=== PATIENT | female | born 1965 | race Caucasian/White ===

== ENCOUNTER → 2022-08-01 12:56 | Outpatient (CLI) | payer OTHER, SELFPAY ==
[2022-08-01 13:40] LABS: COVID19 -Nasal RAPID Negative (Negative)
== END ==
PROVIDERS: PCP Physician Assistant; Referring Provider Orthopaedic Surgery Orthopaedic Surgery of the Spine; Visit Provider Orthopaedic Surgery Orthopaedic Surgery of the Spine
DX: Z20.822 Contact with and (suspected) exposure to COVID-19 (principal)
CPT/HCPCS: 87635; C9803

== ENCOUNTER 2022-08-02 07:13 | Inpatient (IN) | payer OTHER, SELFPAY ==
[2022-08-01 08:41] VITALS: BMI 29.3
[2022-08-02] VITALS (18 sets, daily range): BP systolic 94–147; BP diastolic 57–98; PULSE 62–108; RESP 10–30; TEMP 36.1–36.9; O2SAT 91–99; BMI 29.3
[2022-08-02] MEDS: LACTATED RINGERS 1,000 ML 42 ML IV ×2 (08:20→10:30)
[2022-08-02] MEDS: SCOPOLAMINE 1 PATCH TOP (08:37)
[2022-08-02] MEDS: APREPITANT 40 MG CAPSULE PO (08:38)
--- NOTE | 2022-08-02 08:38 | PM.PREOP ---
Pre-operative Note COVID-19 COVID-19 status: Negative Result date/Date tested (Pos, Neg/Pending): 08/01/22 Criteria for continued procedure: Expected advancement of disease process, Possibility delay results in more complex future surgery or treatment, Increased loss of function, Continuing or worsening of significant or severe pain, Deterioration of the patient's condition or overall health and Delay expected to result in less-positive ultimate med/surg outcome Interval Note History & Physical reviewed/Exam performed by Physician: Yes Changes to H&P: No
[2022-08-02] MEDS: CEFAZOLIN 2 GM/100 ML PREMIX 100 ML IV ×2 (09:15→16:29)
[2022-08-02] MEDS: ACETAMINOPHEN IV 1,000 MG/100 ML VIAL 400 MG IV (09:20)
--- NOTE | 2022-08-02 09:30 | SUR.OPER ---
Prone on spine table, head in foam head support, padded chest and pelvic supports, gel pad at knees, lower legs supported by pillows; nipples, genitalia and toes free of pressure, arms secured on foam padded arm boards at <90 degrees abduction. Tape over blanket at thigh secured to table. Gel pad placed between bilateral heels.
[2022-08-02] MEDS: BUPIVACAINE LIPOSOME 266 MG/20 ML VIAL INJ (09:38)
[2022-08-02] MEDS: BUPIVACAINE 0.25% (PF) 60 ML, EPINEPHrine 0.3 MG INJ (09:39)
--- NOTE | 2022-08-02 12:40 | P.OP_ITS ---
Operative Date/Time/Diagnoses Date of procedure: 08/02/22 Time of procedure: 08:40 Pre-op diagnosis: 1. L2-3, L3-4 post laminectomy syndrome 2. L2-3, L3-4 spondylolisthesis 3. L2-3, L3-4 spinal stenosis Post-op diagnosis: same Procedure & Clinicians Procedure: 1. L4-5, L5-S1 Postero-lateral and posterior interbody fusion 2. L4-5, L5-S1 interbody cage placement. 3. L4-5, L5-S1 decompressive laminectomy with bilateral facetecomies 4. L4-5, L5-S1 Posterior segmental instrumentation 5. [place] of bone marrow from iliac crest 6. Utilization of microsurgical technique and operating microscope 7. Utilization of robotic assisted navigation Same procedure as scheduled: Yes Indications: Patient has been having chronic back pain and worsening lumbar radiculopathy and symptoms of neurogenic claudication. Patient had previous laminectomy with no significant improvement in her symptoms. Patient failed multiple conservative management with worsening pain weakness and numbness in her lower extremity. Patient has been having difficulty performing activity of daily living. After discussing risks benefits of treatment options, patient elected proceed with surgery. Surgeon: Amarilis Pike Health Policy Nurse: Enid Mercedes Click Yes if Unassisted: No Anesthesia Type: General Operative Notes Closure Type: primary Specimen(s): none sent Prosthetic devices, grafts, tissues, transplants, or devices: Globus CREO MIS screws, Rise cages Applied: catheter Estimated Blood Loss (mL): 150 Blood products transfused: none Procedure in detail: Patient was seen in the preoperative area. Risks and benefits of the surgery was discussed with the patient. Informed consent was obtained from the patient and placed in the chart. Surgical site was marked. Patient was taken to the operative room. General anesthesia was administered. Prophylactic antibiotic was given to the patient less than 30 min before the incision was made. Patient was placed into a prone position on the [place] table. Patient's back was then prepped and draped in the sterile fashion. Time-out was performed at this time. After patient was prepped and draped, patient's PSIS was palpated and marked bilaterally. Small 1 cm incision was made over the PSIS for placement of the reference probes. Two trocar was placed into the PSIS 1 on each side. The reference probe was attached to the trocar of the reference apparatus. At this time the C-arm imaging was used to confirm AP and lateral of L2, L3-L4 vertebrae and merged the C-arm imaging using the [employer] robotic navigation system with the CT of the lumbar spine. After successful merging was completed and confirmed, skin marker was used to jose alfredo out the skin incision using the ZipList robotic arm. Bilateral incision was made at this time. Pre templated trajectory was used and guided using the [employer] robotic navigation system for bilateral L2 L3, L4 pedicle screw placement. This was done by using the robotic arm to guide the high-speed bur to make a cortical entry point. Next a drill was placed also using the robotic arm and guided using the navigation system drilling partially through bilateral L2, L3, L4 pedicles. Next L2, L3, L4 pedicle screws it was pre templated and measured was placed onto the power owner operator tanker truck driver and inserted into the pedicles bilaterally. After all 6 screws were placed C-arm imaging was taken of both AP and lateral to confirm the placement. Excellent placement of the screws were confirmed and a matched precisely with the pre planned screw placement using the navigation system. MARs retractor was inserted using [employer] guidence. Globus MARS retractors was placed inside the incision and docked onto the L2, L3 lamina. Using microsurgical technique and operating microscope, a L3, L4 laminectomy and L2-3, L3-4 facetectomy was performed using a Kerrison rongeur. Patient was found have severe lateral recess and neural foramen stenosis which was fully decompressed after the laminectomy facetectomy. More than 75% of the facets we re removed during the process of decompression rendering L2-3, L3-4 level grossly unstable and required a fusion procedure at the same time. The disc space at L2-3, L3-4 was identified, and a total diskectomy was performed at L2- 3, L3-4 level. The endplates were decorticated using a rasp and shaver. The total diskectomy and decortication was performed at L2-3, L3-4 level in order to to accomplish a L2-3, L3-4 fusion. The local bone from the laminectomy and facetectomy was saved for local bone grafting. After the total diskectomy and decortication was completed, Trifecta bone graft material was combined with local bone that was harvested earlier. At this time, a separate skin is incision was made over the iliac crest. A Jamshidi needle was inserted into the iliac crest through a separate skin incision. 5 cc of bone marrow aspiration was obtained through the separate skin incision using a Jamshidi needle from the iliac crest. The bone marrow aspiration was combined with local bone and the Trifecta bone grafting material. The bone grafting material was placed into the L2-3, L3-4 interbody space along with expandable cages. One cage each was inserted into the L2-3 L3-4 interbody space along with bone graft material. The cage was expanded to its maximum height using the torque limiting screwdriver. The disc preparation as well as the cage insertion were also performed under navigation guidance. After the cage was placed, AP and lateral C-arm imaging was taken to confirm placement of the cage and excellent position was confirmed. Globus MARS retractor was inserted and docked onto the L2-3, L3-4 posterolateral gutter on the right side. Using the power drill, posterior-lateral decortication was performed at L2-3, L3-4 level until bleeding cortical bone was identified. The remaining bone grafting material was placed into the L2-3, L3-4 posterior lateral gutter he order to accomplish posterolateral fusion at the L2- 3, L3-4 level. At this time the tulips were attached to the L2, L3-L4 pedicle screw shanks. After measuring the length of the rods, they were inserted into the tulips of the pedicle screws and locked in place using locking caps and torque limiting screwdriver bilaterally. Total 6 caps and 2 titanium rods was used in order to complete the posterior instrumentation construct. After all the hardware was placed, and confirmed with AP and lateral C-arm imaging, the wound was then irrigated with sterile normal saline and packed with Ray-Joe gauze for 3 min to accomplish hemostasis. After the gauze was removed the deep fascia was closed with #1 Vicryl suture. The subcutaneous layer was closed with 2-0 Vicryl. The skin was closed with skin katarina. Patient tolerated the procedure well. There were no complications. Neuro monitoring system was used to monitor patient's neurologic status throughout entire procedure. There was no disturbance of the neural monitoring signals throughout the case. Complications: none Post-operative Condition: stable Disposition: PACU Plan for aftercare: Admit to inpatient hospital
[2022-08-02] MEDS: hydrOXYzine 50 MG/ML INJ 25 MG IM (13:06)
[2022-08-02] MEDS: LORazepam 2 MG/ML INJ 0.25 MG IV (13:07)
[2022-08-02] MEDS: HYDROMORPHONE 2 MG INJ IV ×2 (13:16→13:24)
[2022-08-02] MEDS: OXYCODONE IR 5 MG TABLET PO (13:29)
--- NOTE | 2022-08-02 14:18 | SUR.PHASEI ---
report called to Yohannes.
--- NOTE | 2022-08-02 14:42 | SUR.PHASEI ---
Patient transferred to the floor with her walker, belongings bag, purse. Report given to Yohannes. VS stable. O2 sat mid 90s on RA. Back dressing checked with RN. IV saline locked.
--- NOTE | 2022-08-02 15:15 | PT.IIE ---
Current Diagnoses Spondylolisthesis, lumbar region (08/02/22) Spinal stenosis, lumbar region with neurogenic claudication (08/02/22) Postlaminectomy syndrome, not elsewhere classified (08/02/22) Surgery Performed Operation Date: 08/02/22 08:45 Actual Procedures p L2-3, L3-4 TLIF w. posterior instrumentation -Robot - Amarilis Pike MD Surgical History (Last Updated 08/01/22 @ 09:23 by Halina Aponte, RN) History of bilateral carpal tunnel release (2021) History of bilateral tubal ligation History of hysterectomy Hx of laminectomy (2016) Hx of laminectomy (07/29/21) Hx of removal of cyst Hx of removal of cyst Hx of tonsillectomy Previous section S/P cervical spinal fusion (02/21/21) S/P foot surgery, left Medical History (Last Updated 08/01/22 @ 09:42 by Halina Aponte, RN) Acid reflux Anesthesia complication Anxiety COVID-19 virus infection Depression Diverticulosis Easy bruisability HTN (hypertension) Neuropathy Sciatica Spinal stenosis Physical Therapy Inpatient Evaluation/Re-Eval M1 PT/OT-IP Prior Functional Status Start: 08/02/22 17:18 Freq: NEEDED Status: Active Protocol: Document 08/02/22 15:15 AB (Rec: 08/02/22 17:39 AB [id number]) Medical Review Prior Functional Status Medical History Reviewed Yes Communication able to make needs known Mobility and Gait pt stated that she is modified independent with all mobilities and ambulation without AD but occasionally uses a 4WW; pt also uses a L AFO Social History Household Members spouse Living Arrangements House Number of Floors (Floors) One Floor Number of Stairs To Enter/Railing? 1 step to enter pt has 1 step stool to get up to get into the bed Home Environment High Toilet,Walk in Shower, Built-In Shower Seat Home Equipment Front Wheel Walker,Four Wheel Walker,Hand Held Shower M2 PT-IP Current Condition Start: 08/02/22 17:18 Freq: NEEDED Status: Active Protocol: Document 08/02/22 15:15 AB (Rec: 08/02/22 17:39 AB [email or web address]) Physical Therapy Current Condition Current Condition Evaluation Date 08/02/22 Treatment Diagnosis s/p L4-5, L5S1 TLIF; difficulty in walking Onset Date 08/02/22 M3 PT-IP Subjective Start: 08/02/22 17:18 Freq: NEEDED Status: Active Protocol: Document 08/02/22 15:15 AB (Rec: 08/02/22 17:39 AB [id number]) Subjective Physical Therapy Visit Type Type Initial Evaluation Visit Start Time 15:15 Visit Stop Time 16:00 Total Visit Minutes 45 Number of UNDERGROUND DISTRIBUTION ENGINEER Visits 0 Physical Therapy Visit Comments Patient Comments agreeable to do PT Therapy Pain Assessment Pain When Pain Assessed At Rest Pain Present Pain Present Pain Reported Location Bilateral Back Intensity 7 Scale Used Numeric (0 - 10) Pain Management Techniques Distraction,Modification of Treatment,Re-positioning, Timing of Activity with Medications M4 PT-IP Mobility and Gait Start: 08/02/22 17:18 Freq: NEEDED Status: Active Protocol: Document 08/02/22 15:15 AB (Rec: 08/02/22 17:39 AB [id number]) PT-Bed Mobility Assessment Rolling Type of Rolling Log Rolling Level of Assist Standby Assistance Supine to Sit Supine to Sit Standby Assistance Sit to Supine Sit to Supine Minimal Assistance PT-Transfer Assessment Sit to and From Stand Sit to and from Stand Minimal Assistance,Moderate Assistance,1 Person Assistance ,Use of Upper Extremities Equipment Transfer Assistive Device Front Wheeled Walker Orthotic/Prosthetic Devices or Brace: No Comments Mobility Comments spouse in room with pt. educated pt and spouse regarding pt's precautions and log roll bed mobility. BP in supine: 87/65. pt no dizziness and wanting to move. BP monitored. completed log roll supine to sit SBA and max cues for techniques. able to sit on EOB CGA. BP in sittin/64. no c/o dizziness. assisted with putting shoes/AFO on. completed sit to stand min to mod A and cues. ambulated in room min to mod A using FWW~ 30 ft. cues for quads activation. presents with unsteady gait and pt tends to jerk FWW during turns. cued for safety and back precautions. pt ambulated back to bed. BP checked after ambulation: 104/66. pt completed log roll sit to supine min A and max cues. positioned in bed. call light and table placed within reach . informed pt and spouse regarding caregiver training and spouse stated that he will stay with pt in the room and can do caregiver training when possible. Gait Assessment Gait Gait Assistance Required: Minimum Assistance,Moderate Assistance Distance (Feet) 30 Able to Maintain Weight Bearing Status Yes During Gait Assistive Devices Assistive Device Gait Belt,Front Wheeled Walker Orthotic/Prosthetic Devices or Brace: No Gait Deviations General Gait Pattern Ataxic,Decreased Stride Length ,Decreased Feet Clearance Factors Limiting Gait Function Factors Limiting Gait Function Decreased Activity Tolerance, Decreased Strength,Limited Range of Motion,Pain,Poor Balance,Poor Safety Awareness PT-Balance Assessment Sitting Balance and Reactions Static Sitting Balance Ability Good Dynamic Sitting Balance Ability Good Standing Balance and Reactions Static Standing Balance Ability Fair Dynamic Standing Balance Ability Fair Device Used FWW M5 PT-IP Objective Assessments Start: 08/02/22 17:18 Freq: NEEDED Status: Active Protocol: Document 08/02/22 15:15 AB (Rec: 08/02/22 17:39 AB [email or web address]) Orientation Orientation/Cognition Level of Alertness Alert Orientation Name,Place,Situation Language Function Ability No Deficits Noted Safety Awareness Decreased Safety Awareness Memory Description No Deficits Noted Gross Range of Motion Lower Extremity ROM Assessment Within Functional Limits Strength Lower Extremity Strength Assessment Left Impaired Ankle 3-/5 Comments Strength Comments (+) L foot drop Sensation Assessment Sensation Gross Sensation WNL Muscle Tone Muscle Tone WNL Yes M6 PT-IP Treatment Start: 08/02/22 17:18 Freq: NEEDED Status: Active Protocol: Document 08/02/22 15:15 AB (Rec: 08/02/22 17:39 AB [email or web address]) Physical Therapy Treatment Education Education Provided Precautions,Weight Bearing Status,Post-Op Packet,Safety M7 PT-IP Assessment and Plan Start: 08/02/22 17:18 Freq: NEEDED Status: Active Protocol: Document 08/02/22 15:15 AB (Rec: 08/02/22 17:39 AB [email or web address]) PT Summary Assessment and Plan Potential Rehabilitation Potential Fair Status of Condition at Evaluation Evolving Summary Impairments Pain,ROM,Strength,Balance, Coordination,Sensation,Tone, Cognition,Bed Mobility, Transfers,Gait,Activity Tolerance Assessment Summary pt requiring min to mod A with sit to stand and ambulation using FWW. pt plans to go home and spouse to assist. caregiver training to be conducted tomorrow. will continue to assess progress. Goals Bed Mobility Goal Standby Assistance Transfer Goal Standby Assistance,Front Wheeled Walker Gait Goal Standby Assistance,Front Wheel Walker Gait Distance 200 Other Goals up/down 1 step stool using FWW to get to the bed up/down 1 platform step to enter the house Days to Meet Goals 5 Frequency of Treatment Frequency Of Treatment Twice a Day Treatment Plan Physical Therapy Treatment Plan Bed Mobility Training,Transfer Training,Gait Training, Therapeutic Exercise,Balance Retraining,Post Op Education, Discharge Planning,Hot or Cold Pack,Neuromuscular Re-ed, Coordination Retraining,Manual Therapy Precautions Lumbar Precautions Log Roll,No Twisting,Limit Bending,Lifting Restriction of 10 lbs,Gait Belt above Incisional Area Recommendations To Nursing Amount of Assist Needed 1 Person Assist Discharge Recommendations PT Discharge Recommendations Home with Assistance Transportation Needs at Discharge Private Vehicle
[2022-08-02] MEDS: SODIUM CHLORIDE 0.9% 1,000 ML 100 ML IV (16:28)
[2022-08-02] MEDS: OXYCODONE IR 10 MG TABLET PO ×2 (16:28→20:26)
[2022-08-02] MEDS: DOCUSATE 100 MG CAPSULE PO (20:25)
[2022-08-02] MEDS: SENNOSIDES 8.6 MG TABLET 17.2 MG PO (20:25)
[2022-08-02] MEDS: GABAPENTIN 600 MG TABLET PO (20:26)
[2022-08-02] MEDS: TRAZODONE 50 MG TABLET PO (20:27)
[2022-08-03] VITALS (8 sets, daily range): BP systolic 87–127; BP diastolic 56–75; PULSE 67–86; RESP 14–18; TEMP 36.3–36.7; O2SAT 96–98
[2022-08-03] MEDS: OXYCODONE IR 10 MG TABLET PO ×4 (01:00→15:46)
[2022-08-03] MEDS: ACETAMINOPHEN 325 MG TABLET 650 MG PO ×2 (01:00→06:47)
[2022-08-03] MEDS: CEFAZOLIN 2 GM/100 ML PREMIX 100 ML IV (01:01)
[2022-08-03 07:17] LABS: Hematocrit 27.8 % (36-46); Hemoglobin 9.4 g/dL (12.0-16.0)
--- NOTE | 2022-08-03 07:53 | PM.DS.1 ---
History of Present Illness History of Present Illness Date Patient Seen: 08/03/22 Time Patient Seen: 07:53 Chief complaint: TLIF Narrative: Patient is complaining of [id number] low back pain this morning. She also notes some dizziness. She is a chronic left foot drop. Her is at bedside. Overall she is feeling very well and would like to be discharged home today. Discharge Providers Provider Date of admission: 08/02/22 07:13 Discharge Date: 08/03/22 Primary care physician: Ginna Haynes PA-C Consults: 08/02/22 14:25 Consult to Occupational Therapy Evaluate & Treat Comment: Physician Instructions: Evaluate and treat Consult to Physical Therapy Evaluate & Treat Comment: Physician Instructions: Evaluate and Treat Discharge provider: Enid Mercedes PA-C Summary Hospital Course Discharge Diagnosis: 1. L2-3, L3-4 post laminectomy syndrome 2. L2-3, L3-4 spondylolisthesis 3. L2-3, L3-4 spinal stenosis Hospital Course: Operative Date/Time/Diagnoses Date of procedure: 08/02/22 Time of procedure: 08:40 Procedure & Clinicians Procedure: 1. L2-3, L3-4 Postero-lateral and posterior interbody fusion 2. L2-3, L3-4 interbody cage placement. 3. L2-3, L3-4 decompressive laminectomy with bilateral facetecomies 4. L2-3, L3-4 Posterior segmental instrumentation 5. [place] of bone marrow from iliac crest 6. Utilization of microsurgical technique and operating microscope 7. Utilization of robotic assisted navigation Same procedure as scheduled: Yes Indications: Patient has been having chronic back pain and worsening lumbar radiculopathy and symptoms of neurogenic claudication.? Patient had previous laminectomy with no significant improvement in her symptoms. Patient failed multiple conservative management with worsening pain weakness and numbness in her lower extremity.? Patient has been having difficulty performing activity of daily living.? After discussing risks benefits of treatment options, patient elected proceed with surgery. Surgeon: Amarilis Pike System Development Manager: Enid Mercedes Click Yes if Unassisted: No Anesthesia Type: General Operative Notes Closure Type: primary Specimen(s): none sent Prosthetic devices, grafts, tissues, transplants, or devices: Globus CREO MIS screws, Rise cages Applied: catheter Estimated Blood Loss (mL): 150 Blood products transfused: none Status at Discharge Cognitive/behavioral status at discharge: at baseline, oriented Functional status at discharge: uses cane/walker Overall status at discharge: patient is progressing back to baseline Exam Vital Signs (past 8 hours): - 08/03/22 01:15 08/03/22 05:00 Temperature 98.0 F 97.5 F L Pulse Rate 75 79 Respiratory Rate 14 14 Blood Pressure 87/56 L 106/65 Pulse Oximetry 96 98 Oxygen Flow Rate 0 0 Oxygen Delivery Method Room Air Oxygen Flow Rate 0 Narrative Exam Narrative: Very pleasant 56-year-old female, resting comfortably in bed, no acute distress. Her is at bedside. Lumbar dressing is clean, dry, intact. There is no surrounding erythema, induration, or esvin pus. Bilateral lower extremity: Dorsiflexion and EHL on the left are 0/5 (the patient notes this is her baseline), otherwise motor functions are grossly intact, sensation is grossly intact to light touch, calves are soft and nontender to palpation. Objective Labs Result Diagrams: 08/03/22 06:54 Labs: Laboratory Results - last 24 hr 08/03/22 06:54 Hgb 9.4 L Hct 27.8 L PFSH Medical History Acid reflux Anesthesia complication Anxiety COVID-19 virus infection Depression Diverticulosis Easy bruisability HTN (hypertension) Neuropathy Sciatica Spinal stenosis Surgical History History of bilateral carpal tunnel release (2021) History of bilateral tubal ligation History of hysterectomy Hx of laminectomy (2016) Hx of laminectomy (07/29/21) Hx of removal of cyst Hx of removal of cyst Hx of tonsillectomy Previous section S/P cervical spinal fusion (02/21/21) S/P foot surgery, left Social History household members: spouse Smoking Status: Former smoker alcohol intake: former Discharge Assessment & Plan Assessment and Plan Assessment: -stable status post L2-3, L3-4 TLIF -chronic left foot drop -hypotension, mildly symptomatic -history of hypokalemia Plan of Treatment: -mobilize with PT/OT. Weightbearing as tolerated with front wheel walker or cane. No bending, lifting, twisting x6 weeks -continue with multimodal pain management. We will add in tramadol as needed for moderate pain. -hypotension: We will continue with metoprolol, add a fluid bolus. If her blood pressure does not improve, then we will order a hospitalist consult. -hypokalemia: CMP ordered this morning. She was noted to have significantly low potassium preoperatively, 2.9. Continue to monitor and will need to follow up with her PCP on an outpatient basis -DC home today once cleared by PT/OT and potassium levels are appropriate Discharge Plan Discharge Plan Patient Disposition: Home Discharge orders & Medications Prescriptions: New docusate sodium 100 mg Capsule 100 mg PO BID PRN (Reason: constipation) Qty: 20 0RF acetaminophen 500 mg capsule 500 mg PO Q6HR MDD Max 3000 mg per day PRN (Reason: Pain, Mild (1-3)) Qty: 90 0RF oxycodone 5 mg tablet See Rx Instructions .ROUTE .COMPLEX PRN (Reason: Pain, Severe (7-10)) Qty: 30 0RF Rx Instructions: Take 1-2 tablets by mouth every 4 hours as needed for moderate to severe postoperative pain tramadol 50 mg Tablet 50 mg PO QID PRN (Reason: Pain, Moderate (4-6)) Qty: 42 0RF Continued gabapentin 600 mg Tablet 600 - 1,200 mg PO TID PRN (Reason: Pain) Label Comments: Pt states she takes one at bedtime trazodone 50 mg Tablet 50 mg PO BEDTIME metoprolol succinate 50 mg Tablet Extended Release 24 Hr 50 mg PO DAILY omeprazole 40 mg Capsule,Delayed Release(Dr/Ec) 40 mg PO DAILY PRN (Reason: GI Upset) aspirin [Aspir-81] 81 mg Tablet,Delayed Release (Dr/Ec) 81 mg PO DAILY methocarbamol 750 mg Tablet 750 mg PO DAILY PRN (Reason: Pain) escitalopram oxalate 20 mg Tablet 20 mg PO DAILY Discontinued ibuprofen 800 mg Tablet 800 mg PO BID-TID PRN (Reason: Pain) Follow up/Referrals: Ginna Haynes PA-C [Primary Care Provider] - (Follow-up with your primary care about her low potassium levels) Amarilis Pike MD [Physician] - As previously scheduled (10-14 days for postoperative visit) Diet/Activity/Treatments Diet: Diet as Tolerated Other treatments: Dressing/Wound care: -Keep dressing in place until postoperative follow-up office visit. -Okay to shower. Keep wound out of direct water stream. Can use PressNSeal plastic wrap to protect from shower stream. No soaking or submerging until all the scabs fall off (approximately 6 weeks). -Please call the office if dressing becomes wet, soiled, or saturated. Activities: -Limit bending, lifting, twisting x6 weeks. No deep bending (more than 90 degrees) or twisting at the waist. No lifting > 20 pounds. -Walk frequently. -Weight-bearing as tolerated. Use front wheeled walker, and progress to cane when safe. -Continue with home exercises as directed by your physical therapist. -Ice your incision as needed for pain/inflammation/swelling. Protect your skin with a folded pillowcase. -Incentive Spirometer (breathing device from hospital): 5-10xs every hour while awake for the first 1-2 weeks. Follow-up: -Follow-up with your surgeon or PA in the office in 10-14 days after surgery. -Follow-up with your surgeon 6 weeks postoperatively. Call the office if you have chest pain, shortness of breath, significant swelling that will not resolve with elevating, fever over 101?, significantly worsening pain, or are concerned you might need to go to the Emergency Room. [facility]: [phone] Skin/Wound/Dressing Care Report to your healthcare provider any signs of infection, such as:: chills, fever, night sweats, unusual drainage and unusual redness Visit Report/Discharge Packet Instructions: DI for Prescription Opioid Use, DI for Transforaminal Lumbar Interbody Fusion Stand Alone Forms: Surgery Discharge Discharge Data Primary Care Provider: Ginna Haynes VTE Deep Vein Thrombosis/Pulmonary Embolism Present on Admission: No
[2022-08-03 09:12] LABS: Alanine Aminotransferase 17 IU/L (<35); Albumin Globulin Ratio 1.6 (1.0-2.8); Alkaline Phosphatase 37 U/L (38-126); Aspartate Aminotransferase 37 IU/L (14-36); Bilirubin Total 0.5 mg/dL (0.2-1.3); Blood Urea Nitrogen 13 mg/dL (7-17); Calcium 7.7 mg/dL (8.4-10.2); Carbon Dioxide 30 mmol/L (22-32); Chloride 99 mmol/L (98-107); Estimated Glomerular Filt Rate > 60 mL/min (>60); Globulin 1.9 g/dL (1.7-4.1); Glucose 110 mg/dL (70-100); HEMOLYSIS < 15 (0-50); Potassium 3.1 mmol/L (3.4-5.1); Sodium 135 mmol/L (137-145); Total Protein 4.9 g/dL (6.3-8.2)
--- NOTE | 2022-08-03 09:43 | OT.IP.EVAL ---
Current Diagnoses Spondylolisthesis, lumbar region (08/02/22) Spinal stenosis, lumbar region with neurogenic claudication (08/02/22) Postlaminectomy syndrome, not elsewhere classified (08/02/22) Surgery Performed Operation Date: 08/02/22 08:45 Actual Procedures p L2-3, L3-4 TLIF w. posterior instrumentation -Robot - Amarilis Pike MD Past Medical History (Last Reviewed 08/03/22 @ 07:56 by Enid Mercedes PA-C) Acid reflux Anesthesia complication Anxiety COVID-19 virus infection Depression Diverticulosis Easy bruisability HTN (hypertension) Neuropathy Sciatica Spinal stenosis Surgical History (Last Reviewed 08/03/22 @ 07:56 by Enid Mercedes PA-C) History of bilateral carpal tunnel release (2021) History of bilateral tubal ligation History of hysterectomy Hx of laminectomy (2016) Hx of laminectomy (07/29/21) Hx of removal of cyst Hx of removal of cyst Hx of tonsillectomy Previous section S/P cervical spinal fusion (02/21/21) S/P foot surgery, left Occupational Therapy Inpatient Evaluation/Re-Eval M1 PT/OT-IP Prior Functional Status Start: 08/02/22 17:18 Freq: NEEDED Status: Active Protocol: Document 08/03/22 09:25 [facility] (Rec: 08/03/22 10:28 [facility] [id number]) Medical Review Prior Functional Status Medical History Reviewed Yes Communication able to make needs known Mobility and Gait pt stated that she is modified independent with all mobilities and ambulation without AD but occasionally uses a 4WW; pt also uses a L AFO Activities of Daily Living and IADL's Pt states had pain during ADl needs and that her would assist at times. Social History Household Members spouse Living Arrangements House Number of Floors (Floors) One Floor Number of Stairs To Enter/Railing? 1 step to enter pt has 1 step stool to get up to get into the bed Home Environment High Toilet,Walk in Shower, Built-In Shower Seat Home Equipment Front Wheel Walker,Four Wheel Walker,Hand Held Shower M2 OT-IP Current Condition Start: 08/03/22 10:04 Freq: Status: Active Protocol: Document 08/03/22 09:25 [facility] (Rec: 08/03/22 10:28 [facility] [id number]) Occupational Therapy Current Condition Current Condition Evaluation Date 08/03/22 Treatment Diagnosis S/p L2-3, L3-4 TLIF Diagnosis Onset Date 08/02/22 Post Operative Precautions Lumbar Precautions Log Roll,No Twisting,Limit Bending,Lifting Restriction of 10 lbs,Gait Belt above Incisional Area M3 OT- IP Subjective and Pain Start: 08/03/22 10:04 Freq: Status: Active Protocol: Document 08/03/22 09:25 [facility] (Rec: 08/03/22 10:28 [facility] [id number]) OT- Subjective Occupational Therapy Visit Type Type Initial Evaluation Visit Start Time :25 Visit Stop Time 09:43 Total Visit Minutes 18 Occupational Therapy Visit Comments Patient Comments Pt wanting to get dressed, pt' s present for caregiver training. Patient/Caregiver Goals To go home. OT Pain Assessment Pain When Pain Assessed At Rest Pain Present Pain Present Denied Pain M4 OT- IP ADL's Start: 08/03/22 10:04 Freq: Status: Active Protocol: Document 08/03/22 09:25 [facility] (Rec: 08/03/22 10:28 [facility] [id number]) OT [id number] Comments OT Self-Feeding Comments Not at meal time. OT ADL-Grooming Comments OT Grooming Comments Not performed. OT ADL-Oral Care Comments Oral Care Comments Educated for pt to best spit into a cup to best follow her back precautions during oral care needs. OT ADL-Dressing General Eval Lower Body Dressing Ability Maximum Assistance Comments OT Dressing Comments At this time, pt's states to assist pt for all needs of ADL's. OT ADL-Toileting General Evaluation Toileting Ability Standby Assistance Comments OT Toileting Comments Pt able to demonstrate the ability to lean to the left and able to reach appropriately . Pt will benefit from using the BSC for safety and present for safety. OT ADL-Bathing Comments OT Bathing Comments Pt not wanting to shower at this time and pt's states to assist. M5 OT- IP IADL's Start: 08/03/22 10:04 Freq: Status: Active Protocol: Document 08/03/22 09:25 [facility] (Rec: 08/03/22 10:28 [facility] [id number]) OT-Instrumental Activities of Daily Living Home Safety Awareness Home Safety Comments At this time as pt is a bit impulsive and needing cues to incorporate her back precautions that her will be there 19/03 to assist with all her needs of ADL's and mobility. Medication Management Medication Management Comments At this time as pt is a bit impulsive and needing cues to incorporate her back precautions that her will be there / to assist with all her needs of ADL's and mobility. Money Management Money Management Comments At this time as pt is a bit impulsive and needing cues to incorporate her back precautions that her will be there / to assist with all her needs of ADL's and mobility. Meal Preparation Meal Preparation Comments At this time as pt is a bit impulsive and needing cues to incorporate her back precautions that her will be there / to assist with all her needs of ADL's and mobility. Blending Tank Tender Helper Blending Tank Tender Helper Comments At this time as pt is a bit impulsive and needing cues to incorporate her back precautions that her will be there / to assist with all her needs of ADL's and mobility. M6 OT- IP Functional Cognition Start: 08/03/22 10:04 Freq: Status: Active Protocol: Document 08/03/22 09:25 [facility] (Rec: 08/03/22 10:28 [facility] [id number]) Cognitive Factors Limiting Selfcare Function Cognitive Ability Level of Alertness Alert Patient Orientation Name,Place,Situation Attention Span Ability Capable of Focused Attention, Unable to Sustain Attention Ability to Follow Commands Able to Follow One Step Commands with Increased Time, Able to Follow One Step Commands with Repetition Safety Awareness Decreased Ability to Apply Precautions,Underestimates Need for Assistance Cognitive Comments Cognitive Assessment Comments Pt is gets distracted easily and needing simple cues to follow. Pt's was able to show good safety to be able to assist pt for ADL and transfer needs. Pt's is well aware that pt is impulsive. OT- Vision and Hearing OT- Hearing Assessment OT- Hearing Assessment WFL M7 OT- IP Mobility and Balance Start: 08/03/22 10:04 Freq: Status: Active Protocol: Document 08/03/22 09:25 [facility] (Rec: 08/03/22 10:28 [facility] [id number]) OT-Transfer Assessment Sit to and From Stand Sit to and from Stand Contact Guard Assistance Transfers Transfer Ability Contact Guard Assistance Technique Transfer Destination Chair,Toilet Devices Transfer Assistive Devices Gait Belt,Front Wheeled Walker Comments Mobility Comments CGA as pt a little unsteady on her feet at times. Pt not wanting to wear her AFO at this time. Encouraged pt to continue to wear her L AFO to prevent from alterating her walking until able to work with outpt PT. In addition to continue to use the FWW , as initially when OT came into the room, pt was trying to walk on her own and then with with hand held assist. OT- Balance Assessment Sitting Balance and Reactions Static Sitting Balance Ability Good Dynamic Sitting Balance Ability Fair Standing Balance and Reactions Static Standing Balance Ability Fair Dynamic Standing Balance Ability Fair M9 OT- IP Assessment and Plan Start: 08/03/22 10:04 Freq: Status: Active Protocol: Document 08/03/22 09:25 [facility] (Rec: 08/03/22 10:28 [facility] [id number]) OT Summary Assessment and Plan Potential Rehabilitation Potential Good Analytic Complexity at Evaluation Low Summary OT Impairments Balance,Functional Mobility, Dressing,Toileting,Bathing, Toilet Transfers,Shower Transfers Progress Towards Goals Progressing Toward Goals Assessment Summary Pt low complexity and main barriers are a step, a bit impulsive and highly distractible and needing direct simple commands to follow. Pt has a very supportive to assist with her needs. Pt to go home when medically stable. Goals Grooming Goal Independent Dressing Goal Moderate Assistance Toileting Goal Standby Assistance Bathing Goal Moderate Assistance Toilet Transfer Goal Independent Shower Transfer Goal Standby Assistance Days to Meet Goals 2 Frequency of Treatment Frequency Of Treatment Once a Day Treatment Plan OT Treatment Plan ADL Training,Functional Mobility,Patient/Family Education,Discharge Planning Discharge Recommendations OT Discharge Recommendations Home with 24/7 Assist Available Transportation Needs at Discharge Private Vehicle
[2022-08-03] MEDS: SODIUM CHLORIDE 0.9% 500 ML 1000 ML IV (10:06)
--- NOTE | 2022-08-03 10:15 | PT.IPTN ---
Current Diagnoses Spondylolisthesis, lumbar region (08/02/22) Spinal stenosis, lumbar region with neurogenic claudication (08/02/22) Postlaminectomy syndrome, not elsewhere classified (08/02/22) Surgery Performed Operation Date: 08/02/22 08:45 Actual Procedures p L2-3, L3-4 TLIF w. posterior instrumentation -Robot - Amarilis Pike MD Physical Therapy Treatment Note M2 PT-IP Current Condition Start: 08/02/22 17:18 Freq: NEEDED Status: Active Protocol: Document 08/03/22 12:57 [facility] (Rec: 08/03/22 13:37 TS [id number]) Physical Therapy Current Condition Current Condition Evaluation Date 08/02/22 Treatment Diagnosis s/p L4-5, L5S1 TLIF; difficulty in walking Onset Date 08/02/22 M3 PT-IP Subjective Start: 08/02/22 17:18 Freq: NEEDED Status: Active Protocol: Document 08/03/22 12:57 [facility] (Rec: 08/03/22 13:37 TS [id number]) Subjective Physical Therapy Visit Type Type Treatment Note Visit Start Time 09:43 Visit Stop Time 10:15 Total Visit Minutes 32 Notes SPTA Keith lead treatment under the supervision of BENOIT Levin. Spouse in room. Vitals Sitting: BP 95/72, 91HR Sitting after mobility:BP 87/ 55 Supine: 93/62, 71HR in room, completed caregiver training Number of JOB COMPOSITOR Visits 1 Physical Therapy Visit Comments Patient Comments Agreeable to PT treatment with caregiver training, just completed tx w/ OT. M4 PT-IP Mobility and Gait Start: 08/02/22 17:18 Freq: NEEDED Status: Active Protocol: Document 08/03/22 12:57 TS (Rec: 08/03/22 13:37 TS [id number]) PT-Bed Mobility Assessment Sit to Supine Sit to Supine Standby Assistance Scooting Scooting Up and Down in Bed Standby Assistance PT-Transfer Assessment Sit to and From Stand Sit to and from Stand Standby Assistance,Use of Upper Extremities Equipment Transfer Assistive Device Gait Belt,Front Wheeled Walker Orthotic/Prosthetic Devices or Brace: No Transfers Transfer Destination Bed Transfer Technique pt ambulated w/ FWW Transfer Ability Level of Assist Standby Assistance,Contact Guard Assistance,Use of Upper Extremities Comments Mobility Comments Pt found standing in with spouse and OT in room, OT left for PT to treat. Pt sat SBA on EOB with FWW expressing feeling some dizziness, BP taken 95/72, pt stated felt ok to complete further gait and 1 step mgt has to do enter home. Spouse educated on proper donning of gait belt and handling when pt is mobilizing. Pt performed sit to stand SBA with spouse. Pt ambulated x30ft in room SBA in FWW, no LOB. Pt performed 1 PF step mgt with FWW, CGA from spouse and cues for FWW placement and stepping up with the strong LE, descend less strong LE. She became more dizzy and face palor after performing step and required to sit EOB. BP taken, 87/55, pt performed sit to supine CGA , BP check again 93/62. Provided education discussion on use small step front bed, backstep cues w/ FWW/stair management, pt/ felt confident will be able to do fine. RN notified of orthostatic, pt was left in room with spouse, call light and tray nearby. Gait Assessment Gait Gait Assistance Required: Standby Assistance Distance (Feet) 30 Able to Maintain Weight Bearing Status Yes During Gait Assistive Devices Assistive Device Gait Belt,Front Wheeled Walker Gait Deviations General Gait Pattern Ataxic,Decreased Stride Length ,Decreased Feet Clearance Factors Limiting Gait Function Factors Limiting Gait Function Decreased Activity Tolerance Comments Gait Comments See mobility comments. Stair Climbing Assessment Evaluation Level of Assist On Stairs Contact Guard Assistance Devices Stair Climbing Assistive Devices Front Wheel Walker Technique/Endurance Stair Climbing Direction Ascend and Descend Stair Climbing Technique Step to Step Number of Steps Climbed 1 Stair Climbing Set # Repetitions (reps) 1 Comments Stair Climbing Comments See mobility comments. PT-Balance Assessment Sitting Balance and Reactions Static Sitting Balance Ability Good Dynamic Sitting Balance Ability Good Standing Balance and Reactions Static Standing Balance Ability Good Dynamic Standing Balance Ability Fair Device Used FWW Comments Other Balance Tests/Deviations/Treatment Pt sat EOB with good static : balance, stood SBA, did not demonstrate any buckling or LOB. M5 PT-IP Objective Assessments Start: 08/02/22 17:18 Freq: NEEDED Status: Active Protocol: Document 08/02/22 15:15 [facility] (Rec: 08/02/22 17:39 AB [id number]) Orientation Orientation/Cognition Level of Alertness Alert Orientation Name,Place,Situation Language Function Ability No Deficits Noted Safety Awareness Decreased Safety Awareness Memory Description No Deficits Noted Gross Range of Motion Lower Extremity ROM Assessment Within Functional Limits Strength Lower Extremity Strength Assessment Left Impaired Ankle 3-/5 Comments Strength Comments (+) L foot drop Sensation Assessment Sensation Gross Sensation WNL Muscle Tone Muscle Tone WNL Yes M6 PT-IP Treatment Start: 08/02/22 17:18 Freq: NEEDED Status: Active Protocol: Document 08/03/22 12:57 TS (Rec: 08/03/22 13:37 TS [id number]) Physical Therapy Treatment Education Education Provided Precautions,Safety M7 PT-IP Assessment and Plan Start: 08/02/22 17:18 Freq: NEEDED Status: Active Protocol: Document 08/03/22 12:57 TS (Rec: 08/03/22 13:37 TS [id number]) PT Summary Assessment and Plan Potential Rehabilitation Potential Good Status of Condition at Evaluation Evolving Summary Impairments Pain,ROM,Strength,Balance, Coordination,Sensation,Tone, Cognition,Bed Mobility, Transfers,Gait,Activity Tolerance Progress Towards Goals Progressing Toward Goals,Slow Progress due to Medical Issues ,Slow Progress due to Activity Tolerance Assessment Summary Pt requiring SBA for bed mobility, sit to stands and ambulation SBA with FWW. Pt was CGA for 1 PF step with cues for foot sequencing and FWW placement. Pt is orthostatic and c/o dizziness/ palor, has decreased activity tolerance and could not progress gait goal or trial small step front bed transfer. JOB COMPOSITOR is recommending return home with assist from spouse when medically cleared. Goals Bed Mobility Goal Standby Assistance Transfer Goal Standby Assistance,Front Wheeled Walker Gait Goal Standby Assistance,Front Wheel Walker Gait Distance 200 Other Goals up/down 1 step stool using FWW to get to the bed up/down 1 platform step to enter the house Days to Meet Goals 5 Frequency of Treatment Frequency Of Treatment Twice a Day Treatment Plan Physical Therapy Treatment Plan Bed Mobility Training,Transfer Training,Gait Training, Therapeutic Exercise,Balance Retraining,Post Op Education, Discharge Planning,Hot or Cold Pack,Neuromuscular Re-ed, Coordination Retraining,Manual Therapy Other Recommendations and Next Treatment Assess stool to bed transfer Focus with FWW, standing activity tolerance. Precautions Lumbar Precautions Log Roll,No Twisting,Limit Bending,Lifting Restriction of 10 lbs,Gait Belt above Incisional Area Recommendations To Nursing Amount of Assist Needed Standby Assistance Discharge Recommendations PT Discharge Recommendations Home with Assistance Transportation Needs at Discharge Private Vehicle
[2022-08-03] MEDS: DOCUSATE 100 MG CAPSULE PO (11:00)
[2022-08-03] MEDS: ESCITALOPRAM 10 MG TABLET 20 MG PO (11:00)
[2022-08-03] MEDS: METOPROLOL ER 50 MG TABLET PO (11:01)
[2022-08-03] MEDS: TRAMADOL 50 MG TABLET PO (11:02)
--- NOTE | 2022-08-03 13:55 | PC.NURSE ---
Day shift note: Patient up with therapies, became dizzy and systolic BP in 90's. Subsided at rest, back in bed. Bolus 500 ml administered per MD order. Patient up 3 times post dizzy episode without any dizziness during ambulation and mobilization. Prior to discharge BP 110 /69 HR 86. Ambulating in room, asymptomatic. Voided > 800 ml Orthostatic VS performed, negative.
--- NOTE | 2022-08-03 13:59 | PC.NURSE ---
Discharge instructions: Patient discharged per MD order and cleared by PT. Patient ambulating in room without difficulty, VSS. Voiding, good PO intake. Discussed importance of F/U with Ortho, PMD, mobility precautions, home safety, new medications, and dressing home care. Both spouse and patient verbalized understanding of discharge instructions. Home via private vehicle, accompanied by spouse. RX to be picked up on way home.
--- NOTE | 2022-08-03 14:20 | PT.IPTN ---
Addendum entered and electronically signed by Poonam Matamoros PTA 08/03/22 16:42: Updated error written: Pt excited, demonstrates increased AROM L LE dorsiflexion since surgery, unmeasured. LAST MODEL DEPARTMENT SUPERVISOR encouraged continue AROM and if wanting can use her theraband has at home to progress strength if finding good progression benefits. Pt inquired feels the LLE AFO is causing her to feel unsteady and wondering if should not use. LAST MODEL DEPARTMENT SUPERVISOR suggested while her body is still adjusting to surgery, having on for support of LLE foot clearance and discuss with surgeon for safety recommendations. Pt verbalized understanding. Original Note: Current Diagnoses Spondylolisthesis, lumbar region (08/02/22) Spinal stenosis, lumbar region with neurogenic claudication (08/02/22) Postlaminectomy syndrome, not elsewhere classified (08/02/22) Surgery Performed Operation Date: 08/02/22 08:45 Actual Procedures p L2-3, L3-4 TLIF w. posterior instrumentation -Robot - Amarilis Pike MD Physical Therapy Treatment Note M2 PT-IP Current Condition Start: 08/02/22 17:18 Freq: NEEDED Status: Active Protocol: Document 08/03/22 15:02 TS (Rec: 08/03/22 15:33 [id number]) Physical Therapy Current Condition Current Condition Evaluation Date 08/02/22 Treatment Diagnosis s/p L4-5, L5S1 TLIF; difficulty in walking Onset Date 08/02/22 M3 PT-IP Subjective Start: 08/02/22 17:18 Freq: NEEDED Status: Active Protocol: Document 08/03/22 15:02 TS (Rec: 08/03/22 15:33 TS [id number]) Subjective Physical Therapy Visit Type Type Treatment Note Visit Start Time 13:55 Visit Stop Time 14:20 Total Visit Minutes 25 Notes BRANDON Parker lead treatment under the supervision of BENOIT Levin. Vitals sitting: BP 89/53 After mobilization: BP 84/55 Supine: BP 98/62 Number of LAST MODEL DEPARTMENT SUPERVISOR Visits 2 Physical Therapy Visit Comments Patient Comments Agreeable to PT treatment. Pt reporting was up with nursing and walked to bathroom and systolic Bp was in 100's. Pt reports AFO is making her feel off balance since surgery and she notices increased dorsiflexion in L ankle since surgery. Therapy Pain Assessment Pain When Pain Assessed At Rest Pain Present Pain Present Pain Reported Location Bilateral Back Pain Behaviors Facial Grimacing,Guarding, Moaning,Wincing M4 PT-IP Mobility and Gait Start: 08/02/22 17:18 Freq: NEEDED Status: Active Protocol: Document 08/03/22 15:02 TS (Rec: 08/03/22 15:33 TS [id number]) PT-Bed Mobility Assessment Rolling Type of Rolling Log Rolling Level of Assist Standby Assistance Supine to Sit Supine to Sit Standby Assistance Sit to Supine Sit to Supine Standby Assistance Scooting Scooting Up and Down in Bed Standby Assistance PT-Transfer Assessment Sit to and From Stand Sit to and from Stand Standby Assistance,Use of Upper Extremities Equipment Transfer Assistive Device Gait Belt,Front Wheeled Walker Orthotic/Prosthetic Devices or Brace: No Transfers Transfer Destination Bed Transfer Technique pt ambulated w/ FWW Transfer Ability Level of Assist Standby Assistance,Use of Upper Extremities Comments Mobility Comments Pt found resting in bed side chair, reporting expecting discharge soon. Bp taken in sitting 89/53. Pt performed sit to sand SBA with FWW x2, pt reported dizziness soon after standing. Pt sat in chair SBA, Bp 84/55. Pt agreeable to trial logroll and step onto stool for transfer into bed. Pt ambulated 6' with FWW and SBA. Pt perfomed transfer from FWW to bed with 1 BWD step with 1 small step CGA from spouse. Pt required cues for logroll sequencing, moving shoulders with hips, and handrail assist to roll supine. Pt's BP improved to 98 /62 in supine. Once in supine pt instructed on heel slides and ankle pumps while in bed for increased ROM in ankle/ circulation. Pt was emotional about BP/pain and RN notified of continued hypotension. Provided education on bed positioning at home for supine and to use pillows between knees for sidelying. Pt was left in bed with call light and tray nearby, spouse and RN in room. Gait Assessment Gait Gait Assistance Required: Standby Assistance Distance (Feet) 6 Able to Maintain Weight Bearing Status Yes During Gait Assistive Devices Assistive Device Gait Belt,Front Wheeled Walker Orthotic/Prosthetic Devices or Brace: No Gait Deviations General Gait Pattern Ataxic,Decreased Stride Length ,Decreased Feet Clearance Factors Limiting Gait Function Factors Limiting Gait Function Decreased Activity Tolerance Comments Gait Comments See mobility commnets Stair Climbing Assessment Evaluation Level of Assist On Stairs Contact Guard Assistance Devices Stair Climbing Assistive Devices Front Wheel Walker Technique/Endurance Stair Climbing Direction Ascend Stair Climbing Technique Step to Step Number of Steps Climbed 1 Stair Climbing Set # Repetitions (reps) 1 Comments Stair Climbing Comments See mobility comments PT-Balance Assessment Sitting Balance and Reactions Static Sitting Balance Ability Good Dynamic Sitting Balance Ability Good Standing Balance and Reactions Static Standing Balance Ability Good Dynamic Standing Balance Ability Fair Device Used FWW Comments Other Balance Tests/Deviations/Treatment Pt sat EOB with good static : balance, stood SBA, did not demonstrate any buckling or LOB. M5 PT-IP Objective Assessments Start: 08/02/22 17:18 Freq: NEEDED Status: Active Protocol: Document 08/02/22 15:15 AB (Rec: 08/02/22 17:39 AB [id number]) Orientation Orientation/Cognition Level of Alertness Alert Orientation Name,Place,Situation Language Function Ability No Deficits Noted Safety Awareness Decreased Safety Awareness Memory Description No Deficits Noted Gross Range of Motion Lower Extremity ROM Assessment Within Functional Limits Strength Lower Extremity Strength Assessment Left Impaired Ankle 3-/5 Comments Strength Comments (+) L foot drop Sensation Assessment Sensation Gross Sensation WNL Muscle Tone Muscle Tone WNL Yes M6 PT-IP Treatment Start: 08/02/22 17:18 Freq: NEEDED Status: Active Protocol: Document 08/03/22 15:02 TS (Rec: 08/03/22 15:33 TS [id number]) Physical Therapy Treatment Education Education Provided Precautions,Safety M7 PT-IP Assessment and Plan Start: 08/02/22 17:18 Freq: NEEDED Status: Active Protocol: Document 08/03/22 15:02 TS (Rec: 08/03/22 15:33 TS [id number]) PT Summary Assessment and Plan Potential Rehabilitation Potential Good Status of Condition at Evaluation Evolving Summary Impairments Pain,ROM,Strength,Balance, Coordination,Sensation,Tone, Cognition,Bed Mobility, Transfers,Gait,Activity Tolerance Progress Towards Goals Progressing Toward Goals,Slow Progress due to Medical Issues ,Slow Progress due to Activity Tolerance Assessment Summary Pt continues to be SBA for sit to stands with FWW, SBA for bed mobility, SBA for ambulation and CGA for 1 step transfer to bed. Pt continues to have dizziness coming into standing and hypotensive. Pt demonstrates partial carryover of logroll but requires some cueing for moving hips with shoulders. Discussed use of theraband for increasing strength and ROM with Pt for R ankle. PT is recommending pt return home with assist from spouse when medically cleared. Goals Bed Mobility Goal Standby Assistance Transfer Goal Standby Assistance,Front Wheeled Walker Gait Goal Standby Assistance,Front Wheel Walker Gait Distance 200 Other Goals up/down 1 step stool using FWW to get to the bed up/down 1 platform step to enter the house Days to Meet Goals 5 Frequency of Treatment Frequency Of Treatment Twice a Day Treatment Plan Physical Therapy Treatment Plan Bed Mobility Training,Transfer Training,Gait Training, Therapeutic Exercise,Balance Retraining,Post Op Education, Discharge Planning,Hot or Cold Pack,Neuromuscular Re-ed, Coordination Retraining,Manual Therapy Other Recommendations and Next Treatment Continue to progress Focus ambulation distance and assess carryover of logroll and check vitals. Precautions Lumbar Precautions Log Roll,No Twisting,Limit Bending,Lifting Restriction of 10 lbs,Gait Belt above Incisional Area Recommendations To Nursing Amount of Assist Needed Standby Assistance Discharge Recommendations PT Discharge Recommendations Home with Assistance Transportation Needs at Discharge Private Vehicle
--- NOTE | 2022-08-03 15:01 | CM.DANOTE ---
Initial DCP Assessment Note Pt is a 56 yo female, resident of [place], now POD#[address] Pike PCP: Ginna Haynes Payer: Kevin Winters Reviewed chart, pt discussed in multidisciplinary rounds this morning. Therapy has cleared pt for return home w/family to assist and pt has planned for home, DC order from Ortho has already been initiated this morning. No barriers identified at this time to patient's safe discharge home w/spouse to assist; close outpatient f/u recommended. ARMANDO Mae Discharge Planning/Care Management CM Discharge Assessment Start: 08/03/22 14:58 Freq: Status: Active Protocol: Document 08/03/22 14:58 MACKENZIE (Rec: 08/03/22 15:01 MACKENZIE [id number]) Discharge Planning Assessment Assigned Paper Cup Machine Operator ARMANDO Ramírez DPOA/Assigned Designee Name Kenneth Jennings, spouse Contact Information [phone] Advance Directives? No History Provided By Patient,Medical Record Prior Living Arrangements House Household Members spouse Type of transporation used prior to Drives own vehicle admit Independent with ADL's Yes Is patient alert and oriented? Yes Patient/Family Preference OP PT Therapy Comment Outpatient follow up per Ortho 's orders Barriers to Discharge No Comment Home w/spouse today Discharge Plan Home Transportation Arrangement Spouse Referrals Initiated None needed
[2022-08-03] MEDS: POTASSIUM CHLORIDE 20 MEQ TAB 40 MEQ PO (15:45)
== END 2022-08-03 16:09 | disposition home or self-care (01) | DRG 455 ==
PROVIDERS: Physician Assistant; Admitting Provider Orthopaedic Surgery Orthopaedic Surgery of the Spine; PCP Physician Assistant; Referring Provider Orthopaedic Surgery Orthopaedic Surgery of the Spine; Visit Provider Orthopaedic Surgery Orthopaedic Surgery of the Spine
PROC: 0SG00AJ Fusion of Lumbar Vertebral Joint with Interbody Fusion Device, Posterior Approach, Anterior Column, Open Approach (ICD-10-PCS; principal; 2022-08-02 08:45)
DX: M48.061 Spinal stenosis, lumbar region without neurogenic claudication (principal); M96.1 Postlaminectomy syndrome, not elsewhere classified; M43.16 Spondylolisthesis, lumbar region; I95.9 Hypotension, unspecified; E87.6 Hypokalemia; F32.A Depression, unspecified; I10 Essential (primary) hypertension; K21.9 Gastro-esophageal reflux disease without esophagitis; Z20.822 Contact with and (suspected) exposure to COVID-19; Z87.891 Personal history of nicotine dependence
CPT/HCPCS: 36415; 80053; 85014; 85018; 97162; 97165; 97530; 97535; C1713; C9290; J0131; J0171; J0330; J0690; J1100; J1170; J2060; J2250; J2405; J2704; J3410; J8501

== ENCOUNTER 2023-12-12 09:52 | Inpatient (IN) | payer OTHER, MEDICARE, SELFPAY ==
[2022-08-02 14:32] VITALS: BMI 29.3
[2023-12-05 08:40] VITALS: BMI 27.4
[2023-12-12] VITALS (14 sets, daily range): BP systolic 107–166; BP diastolic 59–98; PULSE 67–107; RESP 12–22; TEMP 36–37.2; O2SAT 92–100; BMI 27.4
[2023-12-12] MEDS: LACTATED RINGERS 1,000 ML 42 ML IV ×4 (10:44→18:26)
--- NOTE | 2023-12-12 12:03 | PM.PREOP ---
Pre-operative Note Interval Note History & Physical reviewed/Exam performed by Physician: Yes Changes to H&P: No
[2023-12-12] MEDS: CEFAZOLIN 2 GM/100 ML PREMIX 100 ML IV ×3 (13:00→23:38)
[2023-12-12] MEDS: BUPIVACAINE LIPOSOME 266 MG/20 ML VIAL INJ (13:54)
--- NOTE | 2023-12-12 13:56 | SUR.OPER ---
Prone on spine table, head in foam head support, padded chest and pelvic supports, gel pad at knees, lower legs supported by pillows; nipples, genitalia and toes free of pressure, arms secured on foam padded arm boards at <90 degrees abduction. Tape over blanket at thigh secured to table.
--- NOTE | 2023-12-12 17:44 | P.OP_ITS ---
Operative Date/Time/Diagnoses Date of procedure: 12/12/23 Time of procedure: 14:00 Pre-op diagnosis: 1. L4-5, L5-S1 bilateral foraminal stenosis 2. History L2-3, L3-4 fusion with hardware loosening 3. lumbar radiculopathy Post-op diagnosis: same Procedure & Clinicians Procedure: 1. L4-5, L5-S1 posterolateral and posterior interbody fusion 2. L4-5, L5-S1 posterior interbody cage placement 3. L2-3, L3-4 revision laminectomy with exploration of fusion 4. L2-3, L3-4, L4-5, L5-S1 posterior segmental instrumentation with pedicle screw placement 5. L2-3, L3-4 posterolatearl fusion 6. Jena of bone marrow from iliac crest through a separate incision 7. Utilization of microsurgical technique and operating microscope 8. Utilization of robotic assisted navigation Same procedure as scheduled: Yes Surgeon: Amarilis Pike Dowel Pin Man: Hanna Lockett Anesthesia Type: General Operative Notes Closure Type: primary Specimen(s): none sent Prosthetic devices, grafts, tissues, transplants, or devices: Globus CREO MIS screws, Rise cage Applied: catheter Estimated Blood Loss (mL): 250 Blood products transfused: none Procedure in detail: Patient was seen in the preoperative area. Risks and benefits of the surgery was discussed with the patient. Informed consent was obtained from the patient and placed in the chart. Surgical site was marked. Patient was taken to the operative room. General anesthesia was administered. Prophylactic antibiotic was given to the patient less than 30 min before the incision was made. Patient was placed into a prone position on the Maury table. Patient's back was then prepped and draped in the sterile fashion. Time-out was performed at this time. After patient was prepped and draped, patient's PSIS was palpated and marked bilaterally. Small 1 cm incision was made over the PSIS for placement of the reference probes. Two trocar was placed into the PSIS 1 on each side. The reference probe was attached to the trocar of the reference apparatus. At this time the C-arm imaging was used to confirm AP and lateral of L2, L3, L4, L5, and S1 vertebrae and merged the C-arm imaging using the [employer] robotic navigation system with the CT of the lumbar spine. After successful merging was completed and confirmed, skin marker was used to jose alfredo out the skin incision using the [employer] robotic arm. Bilateral incision was made at this time. Using patient's previous scar incision was made over the L4, L5-S1 interval on the left side. Fascia was incised in line with skin incision. Patient's previously placed hardware over the L2-3, L3-4 level was identified by dissecting down to the level the hardware using a Bovie and a Jimenez. The locking caps which was removed using globus screwdriver. The locking juancarlos was then removed from the tulips of the pedicle screws using a Ramo. The pedicle screws were then removed using the screwdriver. The screws were found to have poor purchase due to hardware loosening and indicating pseudoarthrosis at L2-3, L3-4 level. Pre templated trajectory was used and guided using the [employer] robotic navig ation system for left L2, L3, L4, L5 and S1 pedicle screws and rightL2, L3, L4 , L5 and S1 pedicle screws placement. This was done by using the robotic arm to guide the high-speed bur to make a cortical entry point. Next a drill was placed also using the robotic arm and guided using the navigation system drilling partially through bilateral L2, L3, L4, L5, S1 pedicles Next L2, L3, L4, L5, S1 pedicle screws it was pre templated and measured was placed onto the power diesel pile driver operator and inserted into the pedicles bilaterally. After all 10 screws were placed C-arm imaging was taken of both AP and lateral to confirm the placement. Excellent placement of the screws were confirmed and a matched precisely with the pre planned screw placement using the navigation system. MARs retractor was inserted using [employer] nagivation guidence. Globus MARS retractors was placed inside the incision and docked onto the L4 and then L5 lamina. Using microsurgical technique and operating microscope, a L4, L5 laminectomy and L4-5, L5-S1 facetectomy was performed using a Kerrison rongeur. Patient was found have severe lateral recess and neural foramen stenosis which was fully decompressed after the laminectomy facetectomies. More than 75% of the facets were removed during the process of decompression rendering L4-5 L5-S1 level grossly unstable and required a fusion procedure at the same time. The disc space at L4-5, L5-S1 was identified, and a total diskectomy was performed at L4-5 L5-S1 level. The endplates were decorticated using a rasp and shaver. The total diskectomy and decortication was performed at L4-5, L5-S1 level in order to to accomplish a L4-5 L5-S1 fusion. The local bone from the laminectomy and facetectomy was saved for local bone grafting. After the total diskectomy and decortication was completed, Viacel bone graft material was combined with local bone that was harvested earlier. At this time, a separate skin is incision was made over the iliac crest. A Jamshidi needle was inserted into the iliac crest through a separate skin incision. 5 cc of bone marrow aspiration was obtained through the separate skin incision using a Jamshidi needle from the iliac crest. The bone marrow aspiration was combined with local bone and the Viacel bone grafting material. The bone grafting material was placed into the L4-5 and L5-S1 interbody space along with a expandable cage at each level. The cage was expanded to its maximum height using the torque limiting screwdriver. The disc preparation as well as the cage insertion were also performed under navigation guidance. After the cage was placed, AP and lateral C-arm imaging was taken to confirm placement of the cage and excellent position was confirmed. The fusion mass on the right side of L2-3, L3-4 was exposed by performing a right-sided hemilaminectomy at L2-3, L3-4 level. The hemilaminectomy was performed using the Kerrison rongeur to undercut the lamina as well removing additional epidural scar tissue for purpose of decompressing the epidural space. The fusion mass was explored and was found have visible motion indicating pseudoarthrosis. Globus MARS retractor was inserted and docked onto the L2-3, L3-4, L4-5, L5-S1 posterolateral gutter. Using the power drill, posterior- lateral decortication was performed at L2-3, L3-4, L4-5, L5-S1 level until bleeding cortical bone was identified. The remaining bone grafting material was placed into the L2-3, L3-4, L4-5, L5-S1 posterior lateral gutter he order to accomplish posterolateral fusion at the L2-3, L3-4, L4-5, L5-S1 level. The L2 screws or 7.5 x 45 mm fenestrated screws. Fenestrated screws were used due to concerns for additional loosening in the future. Prior to placing the rods into the tulips, bone cement was mixed on the back table and was placed into the vertebral bodies through the fenestrated screws using the bone cement insertion sleeve. 1.5 cc per side of bone cement was placed into the vertebral bodies through the L2 pedicle screws per side. C-arm image was used to confirm injection and placement of the bone cement, which was felt to be appropriate after both sides were completed. All 10 pedicle screws had excellent purchase during the procedure. L3 had 6.5 mm screw on the left 7.5 mm on the right L4 head 7.5 on the left a 9.5 on the right L5 had 7.5 mm bilaterally at S1 had 7.5 mm bilaterally. The rods were 130 mm bilaterally. All 6 screws at L2-L3 L4 levels bilaterally were increased in diameter except the left L3 due to loosening. At this time the tulips were attached to the L2, L3, L4-L5 and S1 pedicle screw shanks. After measuring the length of the rods, they were inserted into the tulips of the pedicle screws and locked in place using locking caps and torque limiting screwdriver bilaterally. Total 10 caps and 2 titanium rods was used in order to complete the posterior instrumentation construct. After all the hardware was placed, and confirmed with AP and lateral C-arm imaging, the wound was then irrigated with sterile normal saline and packed with Ray-Joe gauze for 3 min to accomplish hemostasis. After the gauze was removed the deep fascia was closed with #1 Vicryl suture. The subcutaneous layer was closed with 2-0 Vicryl. The skin was closed with skin katarina. Patient tolerated the procedure well. There were no complications. Neuro monitoring system was used to monitor patient's neurologic status throughout entire procedure. There was no disturbance of the neural monitoring signals throughout the case. The Operation could not have been safely performed without compromising the technical result or length of the procedure, without the assistance of a skilled assembler surgical garment. The assembler surgical garment was medically necessary for proper positioning, retraction and manipulation of instruments, proper exposure, surgical preparation, and manipulation of tissue. Complications: none Post-operative Condition: stable Disposition: PACU Plan for aftercare: Admit to inpatient hospital
--- NOTE | 2023-12-12 17:54 | DI.RAD.S_ITS ---
PROCEDURE: XR LUMBAR SPINE 2-3V INDICATIONS: L2-S1 FUSION TECHNIQUE: 3 views of the lumbar spine were acquired. COMPARISON: None. FINDINGS: 3 intraoperative fluoroscopic images of the lumbar spine demonstrates posterior spinal fusion of L2 through S1 with bilateral pedicular screw and paraspinal rods fixation. Interbody spacers are present. No gross hardware complication seen. IMPRESSION: Intraoperative fluoroscopic support for posterior lumbar spinal fusion. Please see operative note for further details. Dictated by: Jin Rendon M.D. on 12/12/2023 at 20:55 Approved by: Jin Rendon M.D. on 12/12/2023 at 20:56
[2023-12-12] MEDS: LORazepam 2 MG/ML INJ 0.25 MG IV ×2 (18:23→18:36)
[2023-12-12] MEDS: HYDROMORPHONE 1 MG INJ IV ×2 (18:27→18:40)
[2023-12-12] MEDS: hydrOXYzine 50 MG/ML INJ IM (18:28)
[2023-12-12] MEDS: methocarbamoL 500 MG TABLET 750 MG PO (18:43)
--- NOTE | 2023-12-12 19:25 | SUR.PHASEI ---
Report called to Amy
--- NOTE | 2023-12-12 19:50 | SUR.PHASEI ---
Patient transferred to the floor with her belongings bag. Bedside report given to Amy. Dressing checked with RN. Condition stable. Bonilla and IV patent.
[2023-12-12] MEDS: HYDROCODONE/ACET 5/325 TABLET 2 TAB PO (21:24)
[2023-12-12] MEDS: SENNOSIDES 8.6 MG TABLET 17.2 MG PO (21:27)
[2023-12-12] MEDS: DOCUSATE 100 MG CAPSULE PO (21:27)
[2023-12-12] MEDS: TRAZODONE 50 MG TABLET PO (21:27)
[2023-12-12] MEDS: HYDROMORPHONE 0.5 MG INJ IV (21:41)
[2023-12-12] MEDS: LACTATED RINGERS 1,000 ML 125 ML IV (23:04)
[2023-12-13] MEDS: TRAMADOL 50 MG TABLET PO ×4 (00:17→19:47)
--- NOTE | 2023-12-13 00:56 | PC.ADMIT ---
[email or web address] [place] Admission Note: The patient,Cherise Jennings,57 y/o, was given written information regarding hospital policies, unit procedures and contact persons. Patient's smoking status: Former smoker. Vital Signs - 8 hr 12/12/23 17:59 12/12/23 18:05 12/12/23 18:11 Temperature 98.4 F Pulse Rate 107 H 99 H 84 Respiratory Rate 22 19 16 Blood Pressure 138/95 H 152/93 H 166/89 H Pulse Oximetry 96 92 100 Oxygen Delivery Method Room Air Room Air Room Air Oxygen Flow Rate 12/12/23 18:15 12/12/23 18:40 12/12/23 18:56 Temperature Pulse Rate 90 103 H 98 H Respiratory Rate 20 18 12 Blood Pressure 153/94 H 137/98 H 151/90 H Pulse Oximetry 99 96 100 Oxygen Delivery Method Room Air Room Air Nasal Cannula Oxygen Flow Rate 4 12/12/23 19:02 12/12/23 19:12 12/12/23 19:35 Temperature 97.6 F 96.8 F L Pulse Rate 94 H 92 H 101 H Respiratory Rate 12 13 16 Blood Pressure 133/80 127/79 139/74 Pulse Oximetry 95 94 97 Oxygen Delivery Method Room Air Room Air Oxygen Flow Rate 0 12/12/23 20:05 12/12/23 21:00 12/12/23 21:40 Temperature 97.1 F L 97.9 F Pulse Rate 98 H 103 H Respiratory Rate 16 22 Blood Pressure 129/74 141/74 H Pulse Oximetry 96 97 Oxygen Delivery Method Room Air Oxygen Flow Rate 0 0 12/12/23 21:51 12/12/23 23:38 Temperature 97.8 F 98.0 F Pulse Rate 95 H 90 Respiratory Rate 16 16 Blood Pressure 130/80 107/59 L Pulse Oximetry 96 96 Oxygen Delivery Method Oxygen Flow Rate 0 0 Admitted to room 207 via bed from PACU. Is drowsy and but mood is elated. Kept repeating hi, how are you to both spouse and staff. Is oriented except confused as to day of the week. Breath sounds CTA with RA sat of 97%; on continuous oximetry through the night. HRR but tachy in low 100's. Denied nausea. BT present but no flatus as yet. Indwelling catheter is patent; urine is clear, light diogo. Will be assisting to reposition q2h as she requests. Dressing to back intact with shadow drainage on left dressing. Has bruising on bilateral LE and pressure areas on bilateral anterior hips. Abrasion to left cheek possibly related to O2 tubing. Initially stated pain was only 3/10 and tolerable. At 2124 called and was crying stating pain shouldn't be this bad and rated severity as 7/10 so medicated with Dilaudid and Vicodin, repositioned to relieve pressure and ice pack applied; at reassessment was asleep. At 0000 she was awake and stated pain was 6/10 so medicated with Tramadol and repositioned onto other side. Bilateral calf SCD's were applied after admission. Spouse at bedside and rooming in. Oriented to call light and bed controls.
[2023-12-13] MEDS: HYDROMORPHONE 0.5 MG INJ IV ×5 (03:10→16:33)
[2023-12-13 03:20] VITALS: BP 113/69; PULSE 97; RESP 16; TEMP 36.7; O2SAT 96
[2023-12-13] MEDS: HYDROCODONE/ACET 5/325 TABLET 2 TAB PO ×6 (04:07→22:51)
[2023-12-13 06:41] LABS: Hematocrit 31.2 % (36-46); Hemoglobin 10.7 g/dL (12.0-16.0)
--- NOTE | 2023-12-13 07:39 | PM.PNPO.1 ---
Subjective Subjective Interval history: Cherise is a pleasant 57 year old female who is POD#1 s/p L4-5, L5-S1 posterolateral and posterior interbody fusion with cage placement, L2-3, L3-4 revision laminectomy with exploration of fusion, L2-3, L3-4, L4-5, L5-S1 posterior segmental instrumentation with pedicle screw placement, L2-3, L3-4 posterolatearl fusion. Today she reports she is doing well overall but is having severe pain. She reports she slept through her 3am dose of pain medication and woke up in a significant amount of pain but is doing better now that she has been given her pain medication again. Has not gotten out of bed yet, has not worked with PT. Has Bonilla catheter in place still. Plans to d/c to home w/ her once she is able to better mobilize. Denies fever, chills, chest pain, SOB, nausea, vomiting. Exam Vital Signs (past 8 hours): - 12/13/23 03:20 Temperature 98.0 F Pulse Rate 97 H Respiratory Rate 16 Blood Pressure 113/69 Pulse Oximetry 96 Oxygen Flow Rate 0 Oxygen Delivery Method Room Air Oxygen Flow Rate 0 Narrative Exam Narrative: Sitting up in bed during interview today, at bedside. Resp Effort & Inspection: normal respiratory effort and able to speak in complete sentences Cardio Rate: regular rate Other: Extremities appear well perfused, brisk capillary refill. Skin Other: Clean and dry dressing intact over the lumbar spine/back. No rash or skin lesions. Neuro General: patient alert, patient awake and patient oriented x3 Other: gross sensation intact throughout bilateral lower extremities. Extrem Other: 3/5 with DF and EHL, 4/5 with PF (known pre-op L sided foot drop) Right 5/5 DF, PF, EHL. Calves soft and non-tender. Psych Appearance: grossly normal Mental Status: mental status grossly normal Speech and Movement: speech and movement normal Other: positive mood Objective Labs 12/13/23 06:28 Labs: Laboratory Results - last 24 hr 12/13/23 06:28 Hgb 10.7 L Hct 31.2 L PFSH Medical History COVID-19 virus infection Neuropathy Anxiety Depression Easy bruisability Spinal stenosis Diverticulosis Acid reflux HTN (hypertension) Sciatica Anesthesia complication Surgical History (Updated 12/05/23 @ 09:18 by Halina Aponte RN) History of lumbar spinal fusion (08/02/22) Hx of removal of cyst Hx of removal of cyst S/P foot surgery, left Hx of laminectomy (07/29/21) Hx of laminectomy (2016) S/P cervical spinal fusion (02/21/21) History of bilateral carpal tunnel release (2021) Hx of tonsillectomy History of bilateral tubal ligation History of hysterectomy Previous section Social History household members: spouse Smoking Status: Former smoker alcohol intake: former Assessment & Plan Post-op Postoperative Procedures: Procedures Operation Date: 12/12/23 11:45 Actual Procedure Side Surgeon p L4-5, L5-S1 TLIF with posterior instrumentation, L2-S1 PSF-Robot Bilateral Amarilis Pike MD Postoperative day: 1 Postoperative plan narrative: 1) Plan to discharge to home with her either later today pending PT evaluation or tomorrow. 2) Work with PT today to get up and out of bed, if good enough mobilization with PT okay to remove Bonilla. 3) Continue multimodal pain management. Will try to wean from IV to PO opioids for pain control. Ice or heat to the back as needed for additional pain control. 4) Mechanical DVT prophylaxis, SCDs to be on and functioning while in bed. 5) Keep dressing intact, clean, dry until 2 week postop appointment. No soaking the incision site in pools or tubs. No topical ointments or creams to the incision site. 5) Follow up at [facility] orthopedics in 2 weeks for a postop appointment, staple removal and wound check. All patient's questions were answered, they demonstrates understanding and are in agreement with the plan. Call our office if any questions or concerns arise.
[2023-12-13] MEDS: CEFAZOLIN 2 GM/100 ML PREMIX 100 ML IV (07:51)
[2023-12-13 08:00] VITALS: BP 124/77; PULSE 84; RESP 16; TEMP 36.4; O2SAT 99
[2023-12-13] MEDS: DOCUSATE 100 MG CAPSULE PO ×2 (08:28→21:21)
[2023-12-13] MEDS: ESCITALOPRAM 10 MG TABLET 20 MG PO (08:28)
[2023-12-13 08:29] VITALS: BP 124/77; PULSE 68
[2023-12-13] MEDS: METOPROLOL ER 50 MG TABLET PO (08:29)
--- NOTE | 2023-12-13 09:15 | PT.IIE ---
Current Diagnoses Spinal stenosis, lumbar region without neurogenic claudication (12/12/23) Intervertebral disc disorders with radiculopathy, lumbar region (12/12/23) Arthrodesis status (12/12/23) Surgery Performed Operation Date: 12/12/23 11:45 Actual Procedures p L4-5, L5-S1 TLIF with posterior instrumentation, L2-S1 PSF-Robot(Bilateral) - Amarilis Pike MD Surgical History (Last Updated 12/05/23 @ 09:18 by Halina Aponte RN) History of bilateral carpal tunnel release (2021) History of bilateral tubal ligation History of hysterectomy History of lumbar spinal fusion (08/02/22) Hx of laminectomy (2016) Hx of laminectomy (07/29/21) Hx of removal of cyst Hx of removal of cyst Hx of tonsillectomy Previous section S/P cervical spinal fusion (02/21/21) S/P foot surgery, left Medical History (Last Reviewed 08/03/22 @ 07:56 by Enid Mercedes PA-C) Acid reflux Anesthesia complication Anxiety COVID-19 virus infection Depression Diverticulosis Easy bruisability HTN (hypertension) Neuropathy Sciatica Spinal stenosis Physical Therapy Inpatient Evaluation/Re-Eval M1 PT/OT-IP Prior Functional Status Start: 12/13/23 08:21 Freq: NEEDED Status: Active Protocol: Document 12/13/23 08:32 MB (Rec: 12/13/23 09:15 MB [id number]) Medical Review Prior Functional Status Medical History Reviewed Yes Diet/Fluid Consistency Regular Communication WNLs Mobility and Gait Pt reports she did not use AD and used her left AFO Activities of Daily Living and IADL's Mod I Prior Functional Level (Other details) Mod I Social History Household Members spouse Living Arrangements House Number of Floors (Floors) One Floor Number of Stairs To Enter/Railing? 1 platform step to enter Home Environment High Toilet Home Equipment Four Wheel Walker,Straight Cane,Hand Held Shower,Shaft Headman, Grab Bars In Shower Employment Status Retired Additional Social History Comment Pt's is retired and will assist her at home They have an adjustable bed M2 PT-IP Current Condition Start: 12/13/23 08:21 Freq: NEEDED Status: Active Protocol: Document 12/13/23 08:32 MB (Rec: 12/13/23 09:15 MB [id number]) Physical Therapy Current Condition Current Condition Evaluation Date 12/13/23 Treatment Diagnosis TLIF L4-S1, previous TLIF L2-L -4 M3 PT-IP Subjective Start: 12/13/23 08:21 Freq: NEEDED Status: Active Protocol: Document 12/13/23 08:32 MB (Rec: 12/13/23 09:15 MB [id number]) Subjective Physical Therapy Visit Type Type Initial Evaluation Visit Start Time 08:32 Visit Stop Time 08:58 Number of HEALTH SERVICES ADMINISTRATOR Visits 0 Physical Therapy Visit Comments Patient Comments Pt is agreeable to PT. Therapy Pain Assessment Pain When Pain Assessed During Mobility Pain Present Pain Present Pain Reported Location Bilateral Back Intensity 7 Scale Used Numeric (0 - 10) Pain Behaviors Crying,Facial Grimacing Pain Management Techniques Apply Cold,Distraction, Modification of Treatment,Re- positioning,Timing of Activity with Medications M4 PT-IP Mobility and Gait Start: 12/13/23 08:21 Freq: NEEDED Status: Active Protocol: Document 12/13/23 08:32 MB (Rec: 12/13/23 09:15 MB [id number]) PT-Bed Mobility Assessment Rolling Type of Rolling Roll to Right Level of Assist Contact Guard Assistance,1 Person Assistance Supine to Sit Supine to Sit Contact Guard Assistance,Head of Bed Elevated,Bedrails Scooting Scooting to Edge of Bed Contact Guard Assistance Scooting Up and Down in Bed Contact Guard Assistance PT-Transfer Assessment Sit to and From Stand Sit to and from Stand Contact Guard Assistance,1 Person Assistance,Use of Upper Extremities Equipment Transfer Assistive Device Gait Belt,Front Wheeled Walker Transfers Transfer Destination Chair Transfer Technique Stepping Transfer Ability Level of Assist Contact Guard Assistance,1 Person Assistance,Use of Upper Extremities Comments Mobility Comments Pt becomes tearful as PT flattens bed so that she can perform log roll without twisting her back. She reports resting pain of 4/10 increases to 7/10 with mobility and her pain is 6/10 with gait and then increases again and pt con't to cry throughout treatment. Pt cannot tolerate hook lying and getting up to feet quickly enough to check orthostatics. BP and HR in right UE are: sittin/68, 83; standing 147/95, 101. Gait Assessment Gait Gait Assistance Required: Contact Guard Assist Distance (Feet) 30 Able to Maintain Weight Bearing Status Yes During Gait Assistive Devices Assistive Device Gait Belt,Front Wheeled Walker Orthotic/Prosthetic Devices or Brace: No Gait Deviations General Gait Pattern Antalgic,Decreased Stride Length,Decreased Feet Clearance,Flexed Trunk,Step-to Gait Factors Limiting Gait Function Factors Limiting Gait Function Decreased Activity Tolerance, Decreased Strength,Limited Range of Motion,Pain,Poor Balance,Poor Safety Awareness Comments Gait Comments Pt is uncomfortable with all mobility and is crying and so did not stop to put on left AFO for first short walk in order that she can unweight her spine and move a little bit which does help initially and then back pain increases again. PT-Balance Assessment Sitting Balance and Reactions Static Sitting Balance Ability Good Dynamic Sitting Balance Ability Good Standing Balance and Reactions Static Standing Balance Ability Good Dynamic Standing Balance Ability Fair Device Used RW M5 PT-IP Objective Assessments Start: 12/13/23 08:21 Freq: NEEDED Status: Active Protocol: Document 12/13/23 08:32 MB (Rec: 12/13/23 09:15 MB [id number]) Orientation Orientation/Cognition Level of Alertness Alert Orientation Name,Age,Birthday,Month,Date, Year,Day of Week,Place, Situation Language Function Ability No Deficits Noted Safety Awareness Understands Safety Issues Memory Description No Deficits Noted Gross Range of Motion Upper Extremity ROM Impairments Defer to OT Lower Extremity ROM Assessment Bilaterally Impaired Impairments Left foot drop and pt cannot tolerate formal range or MMT today Strength Lower Extremity Strength Assessment Bilaterally Impaired Comments Strength Comments See AROM comments above Sensation Assessment Comments Sensation Comments Pt does not tolerate sensory and coordination testing on the eval Other Assessments Other Other Assessments Less muscle mass in left calf compared to the right M6 PT-IP Treatment Start: 12/13/23 08:21 Freq: NEEDED Status: Active Protocol: Document 12/13/23 08:32 MB (Rec: 12/13/23 09:15 MB [id number]) Physical Therapy Treatment Education Education Provided Precautions,Weight Bearing Status,Post-Op Packet,Safety M7 PT-IP Assessment and Plan Start: 12/13/23 08:21 Freq: NEEDED Status: Active Protocol: Document 12/13/23 08:32 MB (Rec: 12/13/23 09:15 MB [id number]) PT Summary Assessment and Plan Potential Rehabilitation Potential Fair Status of Condition at Evaluation Evolving Summary Impairments Pain,ROM,Strength,Balance, Coordination,Bed Mobility, Transfers,Gait,Activity Tolerance Progress Towards Goals Slow Progress due to Pain Assessment Summary Pt is a 57 y/o female with history of prior lumbar and cervical surgeries and left foot drop. Her gently mentions that pt has low pain tolerance and pt is very tearful throughout treatment and she states that she did receive pain medication and wants to make sure she is on scheduled medication and she and will keep asking for PRN medication. PT is unable to get full orthostatic , range, sensory and MMT for LEs d/t attempts to make pt the most comfortable with mobility. Functionally, she has B LE weakness with noted left foot drop and little right foot clearance since PT cannot get AFO on pt before needing to help her move for pain relief. She is hypertensive during PT assessment. Recommend up with nsg and ongoing PT to improve balance, gait and strength to tolerance and in outpatient at d/c. Goals Bed Mobility Goal Independent Transfer Goal Independent,Front Wheeled Walker,Four Wheeled Walker Gait Goal Independent,Front Wheel Walker ,Four Wheel Walker Gait Distance 100 Other Goals Pt will ascend and descend 1 platform step with rollator or RW and no more than CGA to allow safe home entrance. Days to Meet Goals 3 Frequency of Treatment Frequency Of Treatment Twice a Day Treatment Plan Physical Therapy Treatment Plan Bed Mobility Training,Transfer Training,Gait Training, Therapeutic Exercise,Balance Retraining,Post Op Education, Discharge Planning,Hot or Cold Pack,Neuromuscular Re-ed, Coordination Retraining,Manual Therapy Precautions Lumbar Precautions Log Roll,No Twisting,Limit Bending,Lifting Restriction of 10 lbs,Gait Belt above Incisional Area Weight Bearing Status Weight Bearing Status Weight Bear as Tolerated Recommendations To Nursing Amount of Assist Needed 1 Person Assist Discharge Recommendations PT Discharge Recommendations Home with 19/03 Assist Available,Outpatient PT Transportation Needs at Discharge Private Vehicle
[2023-12-13] MEDS: methocarbamoL 500 MG TABLET 750 MG PO (11:05)
[2023-12-13 12:00] VITALS: BP 114/71; PULSE 81; RESP 16; TEMP 36.8; O2SAT 98
--- NOTE | 2023-12-13 12:38 | OT.IP.EVAL ---
Current Diagnoses Spinal stenosis, lumbar region without neurogenic claudication (12/12/23) Intervertebral disc disorders with radiculopathy, lumbar region (12/12/23) Arthrodesis status (12/12/23) Surgery Performed Operation Date: 12/12/23 11:45 Actual Procedures p L4-5, L5-S1 TLIF with posterior instrumentation, L2-S1 PSF-Robot(Bilateral) - Amarilis Pike MD Past Medical History (Last Reviewed 08/03/22 @ 07:56 by Enid Mercedes PA-C) Acid reflux Anesthesia complication Anxiety COVID-19 virus infection Depression Diverticulosis Easy bruisability HTN (hypertension) Neuropathy Sciatica Spinal stenosis Surgical History (Last Updated 12/05/23 @ 09:18 by Halina Aponte RN) History of bilateral carpal tunnel release (2021) History of bilateral tubal ligation History of hysterectomy History of lumbar spinal fusion (08/02/22) Hx of laminectomy (2016) Hx of laminectomy (07/29/21) Hx of removal of cyst Hx of removal of cyst Hx of tonsillectomy Previous section S/P cervical spinal fusion (02/21/21) S/P foot surgery, left Occupational Therapy Inpatient Evaluation/Re-Eval M1 PT/OT-IP Prior Functional Status Start: 12/13/23 12:51 Freq: NEEDED Status: Active Protocol: Document 12/13/23 12:52 [facility] (Rec: 12/13/23 13:17 [facility] [id number]) Medical Review Prior Functional Status Medical History Reviewed Yes Diet/Fluid Consistency Regular Communication WNLs Mobility and Gait Pt reports she did not use AD and used her left AFO Activities of Daily Living and IADL's Mod I Prior Functional Level (Other details) Mod I Social History Household Members spouse Living Arrangements House Number of Floors (Floors) One Floor Number of Stairs To Enter/Railing? 1 platform step to enter Home Environment High Toilet Home Equipment Four Wheel Walker,Straight Cane,Hand Held Shower,Swimming Coach Or Instructor, Grab Bars In Shower Employment Status Retired Additional Social History Comment Pt's is retired and will assist her at home They have an adjustable bed and use of step to get into a high bed. M2 OT-IP Current Condition Start: 12/13/23 12:51 Freq: Status: Active Protocol: Document 12/13/23 12:52 [facility] (Rec: 12/13/23 13:17 [facility] [id number]) Occupational Therapy Current Condition Current Condition Evaluation Date 12/13/23 Treatment Diagnosis S/P L4-5,L5-S1 TLIF with posterior inst, L2-S1 PSF Robot Diagnosis Onset Date 12/12/23 Post Operative Precautions Lumbar Precautions Log Roll,No Twisting,Limit Bending,Lifting Restriction of 10 lbs,Gait Belt above Incisional Area Weight Bearing Status Weight Bearing Status Weight Bear as Tolerated M3 OT- IP Subjective and Pain Start: 12/13/23 12:51 Freq: Status: Active Protocol: Document 12/13/23 12:52 [facility] (Rec: 12/13/23 13:17 [facility] [id number]) OT- Subjective Occupational Therapy Visit Type Type Initial Evaluation Visit Start Time 11:58 Visit Stop Time 13:35 Occupational Therapy Visit Comments Patient Comments Pt wanting to get up to move around. Patient/Caregiver Goals TO go home. OT Pain Assessment Pain When Pain Assessed At Rest Pain Present Pain Present Pain Reported Location Bilateral Back Intensity 6 Scale Used Numeric (0 - 10) M4 OT- IP ADL's Start: 12/13/23 12:51 Freq: Status: Active Protocol: Document 12/13/23 12:52 [facility] (Rec: 12/13/23 13:17 [facility] [id number]) OT [id number] Comments OT Self-Feeding Comments Pt's feeding pt while lying in bed side-lying. Suggested pt eat with her head up higher, but insists she is fine. OT ADL-Grooming Comments OT Grooming Comments Not performed. OT ADL-Oral Care Comments Oral Care Comments Not performed. OT ADL-Dressing General Eval Lower Body Dressing Ability Total Assistance Comments OT Dressing Comments Pt not wanting to wear her L AFO while up and states her will assist her for all needs. OT ADL-Toileting Comments OT Toileting Comments Pt not having to go. Educated best to stand to wipe, use of toilet paper aid to best follow her back precautions. Pt's states he will just be assisting her. Pt agreed that she will wear pads /brief especially at night. Pt has a BSC that can be places next to the bed or on the toilet. OT ADL-Bathing Comments OT Bathing Comments Pt would benefit from shower chair at home to use. M5 OT- IP IADL's Start: 12/13/23 12:51 Freq: Status: Active Protocol: Document 12/13/23 12:52 [facility] (Rec: 12/13/23 13:17 [facility] [id number]) OT-Instrumental Activities of Daily Living Deficits IADL Deficits Identified Deficits Home Safety Awareness Awareness of Need for Assistance at Home Good Awareness Ability to Problem Solve Emergency Able to Problem Solve Situations Home Safety Comments Pt is very anxious and per pt' s has a very low pain tolerance and he plans to assist her for all needs at home. Medication Management Medication Management Comments Pt will benefit from assist. Money Management Money Management Comments Pt will benefit from assist. Meal Preparation Meal Preparation Comments Pt's to assist. Ball Holder Ball Holder Comments Pt's to assist. M6 OT- IP Functional Cognition Start: 12/13/23 12:51 Freq: Status: Active Protocol: Document 12/13/23 12:52 [facility] (Rec: 12/13/23 13:17 [facility] [id number]) Cognitive Factors Limiting Selfcare Function Cognitive Ability Level of Alertness Alert Patient Orientation Name,Place,Situation Attention Span Ability Capable of Focused Attention, Unable to Sustain Attention Ability to Follow Commands Able to Follow One Step Commands with Increased Time, Able to Follow One Step Commands with Repetition Cognitive Comments Cognitive Assessment Comments Pt not able to recall her back precautions and needing vc to recall and incorporate for ADL and mobility needs. Pt needing lots of encouragement and step by step instructions as pt very anxious and hurting . OT- Vision and Hearing OT- Vision Assessment Visual Acuity Glasses All The Time Visual Attentiveness WFL Occular Pursuits WFL M7 OT- IP Mobility and Balance Start: 12/13/23 12:51 Freq: Status: Active Protocol: Document 12/13/23 12:52 [facility] (Rec: 12/13/23 13:17 [facility] [id number]) OT- Bed Mobility Assessment Sit to Supine Sit to Supine Assist Minimal Assistance OT-Transfer Assessment Sit to and From Stand Sit to and from Stand Contact Guard Assistance, Minimal Assistance Transfers Transfer Ability Contact Guard Assistance Technique Transfer Destination Bed,Chair Transfer Technique Stand Step Pivot Devices Transfer Assistive Devices Gait Belt,Front Wheeled Walker Comments Mobility Comments Pt educated to scoot to the edge of the recliner and push with her arms on the armrest to stand while hinging at her hips to come to stand. Pt states heard a pop in her back and very tearful. Therapist did not hear any noise from her back. Able to notify pt's nurse and PA called as was pt very anxious and concerned. Pt however wanting to get up again and walk around the room and states afterwards feeling better. OT- Balance Assessment Sitting Balance and Reactions Static Sitting Balance Ability Good Dynamic Sitting Balance Ability Fair Standing Balance and Reactions Static Standing Balance Ability Good Dynamic Standing Balance Ability Fair M8 OT- IP Objective Assessments Start: 12/13/23 12:51 Freq: Status: Active Protocol: Document 12/13/23 12:52 [facility] (Rec: 12/13/23 13:17 [facility] [id number]) OT Gross Range of Motion Upper Extremity Range of Motion Assessment Within Functional Limits OT Strength Comments Strength Comments NT due but WFL for mobility needs today. M9 OT- IP Assessment and Plan Start: 12/13/23 12:51 Freq: Status: Active Protocol: Document 12/13/23 12:52 [facility] (Rec: 12/13/23 13:17 [facility] [id number]) OT Summary Assessment and Plan Potential Rehabilitation Potential Good Analytic Complexity at Evaluation Low Summary OT Impairments Pain,Strength,Balance, Functional Mobility,Dressing, Toileting,Bathing,Toilet Transfers,Shower Transfers Progress Towards Goals Progressing Toward Goals,Slow Progress due to Pain Assessment Summary Pt low complexity and main barriers are pain and needing encouragement, reassurance that and reminders to follow her back precautions. Per pt' s states pt has a low pain and states will be there to assist her for all her needs. Pt to go home with 24/7 assist when medically stable. Pt wanting a FWW and issued one to the pt. Goals Grooming Goal Independent Dressing Goal Moderate Assistance Toileting Goal Minimal Assistance Bathing Goal Moderate Assistance Toilet Transfer Goal Standby Assistance Shower Transfer Goal Contact Guard Assistance Days to Meet Goals 5 Frequency of Treatment Frequency Of Treatment Once a Day Treatment Plan OT Treatment Plan ADL Training,Functional Mobility,Patient/Family Education,Discharge Planning Other Treatment Recommendations and Next caregiver training Treatment Focus Discharge Recommendations OT Discharge Recommendations Home with 24/7 Assist Available Home Equipment Needs FWW -issued, shower chair Transportation Needs at Discharge Private Vehicle
[2023-12-13 16:00] VITALS: BP 114/64; PULSE 82; RESP 16; TEMP 36.8; O2SAT 97
[2023-12-13] MEDS: ONDANSETRON 4 MG/2 ML INJ IV (16:28)
--- NOTE | 2023-12-13 19:00 | PT.IPTN ---
Current Diagnoses Spinal stenosis, lumbar region without neurogenic claudication (12/12/23) Intervertebral disc disorders with radiculopathy, lumbar region (12/12/23) Arthrodesis status (12/12/23) Surgery Performed Operation Date: 12/12/23 11:45 Actual Procedures p L4-5, L5-S1 TLIF with posterior instrumentation, L2-S1 PSF-Robot(Bilateral) - Amarilis Pike MD Physical Therapy Treatment Note M2 PT-IP Current Condition Start: 12/13/23 08:21 Freq: NEEDED Status: Active Protocol: Document 12/13/23 08:32 MB (Rec: 12/13/23 09:15 MB [id number]) Physical Therapy Current Condition Current Condition Evaluation Date 12/13/23 Treatment Diagnosis TLIF L4-S1, previous TLIF L2-L -4 M3 PT-IP Subjective Start: 12/13/23 08:21 Freq: NEEDED Status: Active Protocol: Document 12/13/23 18:56 [facility] (Rec: 12/13/23 19:00 [facility] [id number]) Subjective Physical Therapy Visit Type Type Treatment Note Visit Start Time 18:20 Visit Stop Time 18:46 Number of METAL BONDING CRIB ATTENDANT Visits 0 Physical Therapy Visit Comments Patient Comments Pt agreeable to do PT M4 PT-IP Mobility and Gait Start: 12/13/23 08:21 Freq: NEEDED Status: Active Protocol: Document 12/13/23 18:56 [facility] (Rec: 12/13/23 19:00 [facility] [id number]) PT-Bed Mobility Assessment Rolling Type of Rolling Roll to Left Level of Assist Standby Assistance Supine to Sit Supine to Sit Standby Assistance PT-Transfer Assessment Sit to and From Stand Sit to and from Stand Contact Guard Assistance,Use of Upper Extremities Equipment Transfer Assistive Device Gait Belt,Front Wheeled Walker Orthotic/Prosthetic Devices or Brace: No Gait Assessment Gait Gait Assistance Required: Contact Guard Assist Distance (Feet) 60 Able to Maintain Weight Bearing Status Yes During Gait Assistive Devices Assistive Device Gait Belt,Front Wheeled Walker Orthotic/Prosthetic Devices or Brace: No Gait Deviations General Gait Pattern Antalgic,Decreased Stride Length,Decreased Feet Clearance Factors Limiting Gait Function Factors Limiting Gait Function Decreased Activity Tolerance, Decreased Strength,Limited Range of Motion,Pain PT-Balance Assessment Sitting Balance and Reactions Static Sitting Balance Ability Good Dynamic Sitting Balance Ability Good Standing Balance and Reactions Static Standing Balance Ability Good Dynamic Standing Balance Ability Fair Device Used FWW M5 PT-IP Objective Assessments Start: 12/13/23 08:21 Freq: NEEDED Status: Active Protocol: Document 12/13/23 08:32 MB (Rec: 12/13/23 09:15 MB [id number]) Orientation Orientation/Cognition Level of Alertness Alert Orientation Name,Age,Birthday,Month,Date, Year,Day of Week,Place, Situation Language Function Ability No Deficits Noted Safety Awareness Understands Safety Issues Memory Description No Deficits Noted Gross Range of Motion Upper Extremity ROM Impairments Defer to OT Lower Extremity ROM Assessment Bilaterally Impaired Impairments Left foot drop and pt cannot tolerate formal range or MMT today Strength Lower Extremity Strength Assessment Bilaterally Impaired Comments Strength Comments See AROM comments above Sensation Assessment Comments Sensation Comments Pt does not tolerate sensory and coordination testing on the eval Other Assessments Other Other Assessments Less muscle mass in left calf compared to the right M6 PT-IP Treatment Start: 12/13/23 08:21 Freq: NEEDED Status: Active Protocol: Document 12/13/23 18:56 [facility] (Rec: 12/13/23 19:00 [facility] [id number]) Physical Therapy Treatment Education Education Provided Precautions,Weight Bearing Status,Post-Op Packet,Safety M7 PT-IP Assessment and Plan Start: 12/13/23 08:21 Freq: NEEDED Status: Active Protocol: Document 12/13/23 18:56 [facility] (Rec: 12/13/23 19:00 [facility] [id number]) PT Summary Assessment and Plan Summary Impairments Pain,ROM,Strength,Balance, Coordination,Bed Mobility, Transfers,Gait,Activity Tolerance Progress Towards Goals Progressing Toward Goals Assessment Summary Pt improved with mobility and was SBA to [facility] today with improved mobility and pain control. She notes mild dizziness but no orthostatic hypotension. Her was present throughout and voices ability to help her at home. Goals Bed Mobility Goal Independent Transfer Goal Independent,Front Wheeled Walker,Four Wheeled Walker Gait Goal Independent,Front Wheel Walker ,Four Wheel Walker Gait Distance 100 Other Goals Pt will ascend and descend 1 platform step with rollator or RW and no more than CGA to allow safe home entrance. Days to Meet Goals 3 Frequency of Treatment Frequency Of Treatment Twice a Day Treatment Plan Physical Therapy Treatment Plan Bed Mobility Training,Transfer Training,Gait Training, Therapeutic Exercise,Balance Retraining,Post Op Education, Discharge Planning,Hot or Cold Pack,Neuromuscular Re-ed, Coordination Retraining,Manual Therapy Other Recommendations and Next Treatment Work on stairs ,Continue to Focus progress ambulation distance and assess carryover of logroll and check vitals. Precautions Lumbar Precautions Log Roll,No Twisting,Limit Bending,Lifting Restriction of 10 lbs,Gait Belt above Incisional Area Weight Bearing Status Weight Bearing Status Weight Bear as Tolerated Recommendations To Nursing Amount of Assist Needed 1 Person Assist Discharge Recommendations PT Discharge Recommendations Home with / Assist Available,Outpatient PT Transportation Needs at Discharge Private Vehicle
[2023-12-13 20:36] VITALS: BP 117/71; PULSE 88; RESP 16; TEMP 36.6; O2SAT 96
[2023-12-13] MEDS: TRAZODONE 50 MG TABLET PO (21:20)
[2023-12-13] MEDS: SENNOSIDES 8.6 MG TABLET 17.2 MG PO (21:21)
[2023-12-14] MEDS: TRAMADOL 50 MG TABLET PO (02:02)
[2023-12-14] MEDS: HYDROCODONE/ACET 5/325 TABLET 2 TAB PO ×2 (03:07→07:46)
[2023-12-14 05:47] VITALS: BP 133/86; PULSE 94; RESP 17; TEMP 36; O2SAT 97
--- NOTE | 2023-12-14 07:16 | PM.DS.1 ---
History of Present Illness History of Present Illness Date Patient Seen: 12/14/23 Time Patient Seen: 07:16 Chief complaint: TLIF Narrative: Operative Date/Time/Diagnoses Date of procedure: 12/12/23 Time of procedure: 14:00 Pre-op diagnosis: 1. L4-5, L5-S1 bilateral foraminal stenosis 2. History L2-3, L3-4 fusion with hardware loosening 3. lumbar radiculopathy Post-op diagnosis: same Procedure & Clinicians Procedure: 1. L4-5, L5-S1 posterolateral and posterior interbody fusion 2. L4-5, L5-S1 posterior interbody cage placement 3. L2-3, L3-4 revision laminectomy with exploration of fusion 4. L2-3, L3-4, L4-5, L5-S1 posterior segmental instrumentation with pedicle screw placement 5. L2-3, L3-4 posterolatearl fusion 6. [place] of bone marrow from iliac crest through a separate incision 7. Utilization of microsurgical technique and operating microscope 8. Utilization of robotic assisted navigation Same procedure as scheduled: Yes Surgeon: Amarilis Pike Bowling Ball Assembler: Hanna Lockett Anesthesia Type: General Operative Notes Closure Type: primary Specimen(s): none sent Prosthetic devices, grafts, tissues, transplants, or devices: Globus CREO MIS screws, Rise cage Applied: catheter Estimated Blood Loss (mL): 250 Blood products transfused: none Discharge Providers Provider Date of admission: 12/12/23 09:52 Discharge Date: 12/14/23 Primary care physician: Ginna Haynes PA-C Consults: 12/12/23 19:23 Consult to Occupational Therapy Evaluate & Treat Comment: Physician Instructions: Evaluate and treat Consult to Physical Therapy Evaluate & Treat Comment: Physician Instructions: Evaluate and Treat 12/13/23 12:36 Consult to Occupational Therapy Evaluate & Treat Comment: home mobility Physician Instructions: Front Wheeled Walker Discharge provider: Nicki Jalloh PA-C Summary Hospital Course Discharge Diagnosis: L4-5, L5-S1 bilateral foraminal stenosis, History L2-3, L3-4 fusion with hardware loosening, lumbar radiculopathy; s/p L4-5, L5-S1 TLIF w/ extension of posterolateral fusion from L2-S1 Hospital Course: Ms Jennings's hospital course was unremarkable. On the morning of POD# 2, she was eating and voiding without difficulty and wanted to go home. She was evaluated by PT throughout her stay and they felt she was appropriate for homegoing / 19/03 assistance available. Her pain was well-controlled with oral medication. Exam Vital Signs (past 8 hours): - 12/14/23 05:47 Temperature 96.8 F L Pulse Rate 94 H Respiratory Rate 17 Blood Pressure 133/86 Pulse Oximetry 97 Oxygen Flow Rate 0 Oxygen Delivery Method Room Air Oxygen Flow Rate 0 Narrative Exam Narrative: 5/5 strength in hip flexors, quadriceps, hamstrings, PF bilaterally. 5/5 DF, EHL on right; DF, EHL absent on left, this was present prior to surgery. Sensation to light touch intact throughout BLE. Calves soft, compressible, nontender. Objective Labs 12/13/23 06:28 [facility] Medical History COVID-19 virus infection Neuropathy Anxiety Depression Easy bruisability Spinal stenosis Diverticulosis Acid reflux HTN (hypertension) Sciatica Anesthesia complication Surgical History (Updated 12/14/23 @ 07:24 by Nicki Jalloh PA-C) History of lumbar spinal fusion (08/02/22) Hx of removal of cyst Hx of removal of cyst S/P foot surgery, left Hx of laminectomy (07/29/21) Hx of laminectomy (2016) S/P cervical spinal fusion (02/21/21) History of bilateral carpal tunnel release (2021) Hx of tonsillectomy History of bilateral tubal ligation History of hysterectomy Previous section Social History household members: spouse Smoking Status: Former smoker alcohol intake: former Discharge Assessment & Plan Assessment and Plan Assessment: L4-5, L5-S1 bilateral foraminal stenosis, History L2-3, L3-4 fusion with hardware loosening, lumbar radiculopathy; s/p L4-5, L5-S1 TLIF w/ extension of posterolateral fusion from L2-S1 Plan of Treatment: Will discharge w/ tramadol for moderate pain and hydrocodone 10/325 for severe pain. F/u in office in 2 weeks as scheduled. Discharge Plan Discharge Plan Patient Disposition: Home Provider Discharge Comment: Tylenol (acetaminophen) for MILD pain. Tramadol for MODERATE pain. Hydrocodone for SEVERE pain only. Discharge orders & Medications Prescriptions: New hydrocodone-acetaminophen 10-325 mg tablet 1 tab PO Q4-6H PRN (Reason: pain, severe) Qty: 30 0RF Rx Instructions: Do not exceed 3000mg total acetaminophen in 24 hours. Continued gabapentin 600 mg Tablet 600 - 1,200 mg PO TID PRN (Reason: Pain) Patient Comments: Pt states she takes one at bedtime trazodone 50 mg Tablet 50 mg PO BEDTIME metoprolol succinate 50 mg Tablet Extended Release 24 Hr 50 mg PO DAILY omeprazole 40 mg Capsule,Delayed Release(Dr/Ec) 40 mg PO DAILY PRN (Reason: GI Upset) methocarbamol 750 mg Tablet 750 mg PO DAILY PRN (Reason: Pain) escitalopram oxalate 20 mg Tablet 20 mg PO DAILY docusate sodium 100 mg Capsule 100 mg PO BID PRN (Reason: constipation) Qty: 20 0RF acetaminophen 500 mg capsule 500 mg PO Q6HR MDD Max 3000 mg per day PRN (Reason: Pain, Mild (1-3)) Qty: 90 0RF Changed tramadol 50 mg Tablet 50 mg PO Q4-6H PRN (Reason: Pain, Moderate (4-6)) Qty: 60 0RF Rx Instructions: May take up to 2 tabs (100mg) q 4 hours if needed. Discontinued ibuprofen 800 mg Tablet 800 mg PO TID PRN (Reason: Pain) Follow up/Referrals: Amarilis Pike MD [Physician] - 12/27/23 1:20 pm (Follow up w/ Nicki Jalloh PA-C, at [facility] office in [place].) Ginna Haynes PA-C [Primary Care Provider] - Diet/Activity/Treatments Diet: Diet as Tolerated Activity: No deep bending or twisting at the waist. No lifting more than 10 pounds. Cold/Heat Therapy: Heating pad to low back as needed for pain. Skin/Wound/Dressing Care Report to your healthcare provider any signs of infection, such as:: chills, fever, night sweats, unusual drainage and unusual redness Dressing: May shower. Keep dressing as dry as possible. If dressing becomes wet or dirty, remove and replace with clean, dry gauze. No bathing or otherwise soaking incisions. Do not apply any creams, lotions, or ointments to incisions. Visit Report/Discharge Packet Instructions: DI for Prescription Opioid Use, DI for Transforaminal Lumbar Interbody Fusion Stand Alone Forms: Patient Portal/API, Stroke Signs & Symptoms, Surgery Discharge Discharge Data Primary Care Provider: Ginna Haynes
[2023-12-14] MEDS: ONDANSETRON 4 MG/2 ML INJ IV (07:34)
[2023-12-14 08:00] VITALS: BP 125/80; PULSE 93; RESP 16; TEMP 36.1; O2SAT 97
--- NOTE | 2023-12-14 08:56 | PT.IPTN ---
Current Diagnoses Spinal stenosis, lumbar region without neurogenic claudication (12/12/23) Intervertebral disc disorders with radiculopathy, lumbar region (12/12/23) Arthrodesis status (12/12/23) Surgery Performed Operation Date: 12/12/23 11:45 Actual Procedures p L4-5, L5-S1 TLIF with posterior instrumentation, L2-S1 PSF-Robot(Bilateral) - Amarilis Pike MD Physical Therapy Treatment Note M2 PT-IP Current Condition Start: 12/13/23 08:21 Freq: NEEDED Status: Active Protocol: Document 12/13/23 08:32 MB (Rec: 12/13/23 09:15 MB [id number]) Physical Therapy Current Condition Current Condition Evaluation Date 12/13/23 Treatment Diagnosis TLIF L4-S1, previous TLIF L2-L -4 M3 PT-IP Subjective Start: 12/13/23 08:21 Freq: NEEDED Status: Active Protocol: Document 12/14/23 09:22 TS (Rec: 12/14/23 09:30 TS [id number]) Subjective Physical Therapy Visit Type Type Treatment Note Visit Start Time 08:56 Visit Stop Time 09:20 Notes Spouse present Number of AUTO WRECKER Visits 1 Physical Therapy Visit Comments Patient Comments Pt found resting in chair, reports she is more comfortable to day and having less pain. She has some nausea this morning, is agreeable to PT. Therapy Pain Assessment Pain When Pain Assessed At Rest Pain Present Pain Present Pain Reported Location Bilateral Back Intensity 4 Scale Used Numeric (0 - 10) Pain Management Techniques Apply Cold,Distraction, Modification of Treatment,Re- positioning,Timing of Activity with Medications M4 PT-IP Mobility and Gait Start: 12/13/23 08:21 Freq: NEEDED Status: Active Protocol: Document 12/14/23 09:22 TS (Rec: 12/14/23 09:30 TS [id number]) PT-Transfer Assessment Sit to and From Stand Sit to and from Stand Standby Assistance Equipment Transfer Assistive Device Gait Belt,Front Wheeled Walker Orthotic/Prosthetic Devices or Brace: No Comments Mobility Comments Pt recalled 3/3 spinal precautions. STS from chair SBA with FWW, pt has good standing balance. She ambulated ~100'SBA with FWW, pt was cued to increased step length and height. She performed steps x1 CGA with FWW on platform step leading with RLE, pt has L foot drop. Pt was left in chair, all needs met. Pt declined bed mobility. Gait Assessment Gait Gait Assistance Required: Standby Assistance Distance (Feet) 100 Able to Maintain Weight Bearing Status Yes During Gait Assistive Devices Assistive Device Gait Belt,Front Wheeled Walker Orthotic/Prosthetic Devices or Brace: No Gait Deviations General Gait Pattern Antalgic,Decreased Stride Length,Decreased Feet Clearance Factors Limiting Gait Function Factors Limiting Gait Function Decreased Activity Tolerance, Decreased Strength,Limited Range of Motion,Pain Comments Gait Comments See mobility comments Stair Climbing Assessment Evaluation Level of Assist On Stairs Standby Assistance Devices Stair Climbing Assistive Devices Front Wheel Walker Technique/Endurance Stair Climbing Direction Ascend and Descend Stair Climbing Technique Step to Step Number of Steps Climbed 1 PT-Balance Assessment Sitting Balance and Reactions Static Sitting Balance Ability Good Dynamic Sitting Balance Ability Good Standing Balance and Reactions Static Standing Balance Ability Good Dynamic Standing Balance Ability Fair Device Used FWW M5 PT-IP Objective Assessments Start: 12/13/23 08:21 Freq: NEEDED Status: Active Protocol: Document 12/13/23 08:32 MB (Rec: 12/13/23 09:15 MB [id number]) Orientation Orientation/Cognition Level of Alertness Alert Orientation Name,Age,Birthday,Month,Date, Year,Day of Week,Place, Situation Language Function Ability No Deficits Noted Safety Awareness Understands Safety Issues Memory Description No Deficits Noted Gross Range of Motion Upper Extremity ROM Impairments Defer to OT Lower Extremity ROM Assessment Bilaterally Impaired Impairments Left foot drop and pt cannot tolerate formal range or MMT today Strength Lower Extremity Strength Assessment Bilaterally Impaired Comments Strength Comments See AROM comments above Sensation Assessment Comments Sensation Comments Pt does not tolerate sensory and coordination testing on the eval Other Assessments Other Other Assessments Less muscle mass in left calf compared to the right M6 PT-IP Treatment Start: 12/13/23 08:21 Freq: NEEDED Status: Active Protocol: Document 12/14/23 09:22 TS (Rec: 12/14/23 09:30 TS [id number]) Physical Therapy Treatment Education Education Provided Precautions,Weight Bearing Status,Post-Op Packet,Safety M7 PT-IP Assessment and Plan Start: 12/13/23 08:21 Freq: NEEDED Status: Active Protocol: Document 12/14/23 09:22 TS (Rec: 12/14/23 09:30 TS [id number]) PT Summary Assessment and Plan Summary Impairments Pain,ROM,Strength,Balance, Coordination,Bed Mobility, Transfers,Gait,Activity Tolerance Progress Towards Goals Progressing Toward Goals Assessment Summary Cherise is progressing well with her mobility. She is SBA for STS and for gait with use of FWW. She progressed her gait to ~100'SBA. She improves step length and height with cues. She demonstrates good awareness of her spinal precautions. PT is recommending home with assist. Goals Bed Mobility Goal Independent Transfer Goal Independent,Front Wheeled Walker,Four Wheeled Walker Gait Goal Independent,Front Wheel Walker ,Four Wheel Walker Gait Distance 100 Other Goals Pt will ascend and descend 1 platform step with rollator or RW and no more than CGA to allow safe home entrance. Days to Meet Goals 3 Frequency of Treatment Frequency Of Treatment Twice a Day Treatment Plan Physical Therapy Treatment Plan Bed Mobility Training,Transfer Training,Gait Training, Therapeutic Exercise,Balance Retraining,Post Op Education, Discharge Planning,Hot or Cold Pack,Neuromuscular Re-ed, Coordination Retraining,Manual Therapy Precautions Lumbar Precautions Log Roll,No Twisting,Limit Bending,Lifting Restriction of 10 lbs,Gait Belt above Incisional Area Weight Bearing Status Weight Bearing Status Weight Bear as Tolerated Recommendations To Nursing Amount of Assist Needed 1 Person Assist Discharge Recommendations PT Discharge Recommendations Home with Assistance, Outpatient PT Transportation Needs at Discharge Private Vehicle
[2023-12-14 09:18] VITALS: BP 133/86; PULSE 94
[2023-12-14] MEDS: METOPROLOL ER 50 MG TABLET PO (09:18)
[2023-12-14] MEDS: DOCUSATE 100 MG CAPSULE PO (09:18)
[2023-12-14] MEDS: ESCITALOPRAM 10 MG TABLET 20 MG PO (09:18)
--- NOTE | 2023-12-14 09:36 | CM.DANOTE ---
Initial DCP Assessment Visit Note Reviewed EMR and team rounds for pt's medical status and updates. Met with pt/spouse at bedside and introduced self and role. Pt and spouse reside independently in their own home in [place]. Plan is for her to d/c later this morning, spouse will transport. No DCP needs identified for assistance by pt/family during this admission. Payor: Kevin Attending: Dr. Pike Pt is a 57 year-old F post-op day 2 from a TLIF surgery. She states that she has all of the DME she needs at home for postoperative recovery needs, as well as OP PT scheduled in 6-weeks, per instructions by Dr. Pike. She denies any needs for OP resources or support at this time, is doing well and expresses readiness to return home. Discharge Planning/Care Management CM Discharge Assessment Start: 12/14/23 09:35 Freq: Status: Active Protocol: Document 12/14/23 09:35 DPL (Rec: 12/14/23 09:35 DPL [id number]) Discharge Planning Assessment Assigned Gas Refrigerator Servicer ARMANDO Oliva Advance Directives? No History Provided By Patient,Significant Other, Medical Record Has Patient been admitted in last 30 No days? Prior Living Arrangements House Household Members spouse Type of transporation used prior to Drives own vehicle admit Independent with ADL's Yes Is patient alert and oriented? Yes Caregiver for Another No Community Services used prior to Physical Therapy admission: DME Already Rented / Owned Bath Bench,Elevated Toilet Seat,FWW / Walker,Cane Patient/Family Preference OP PT Therapy Comment Home w/spouse today Discharge Plan Home Transportation Arrangement Spouse Referrals Initiated None needed Review Status In Process Please Provide Date Initial DC 12/14/23 Assessment Was Performed Pre-Anesthesia Assessment Start: 12/05/23 08:40 Freq: Status: Complete Protocol: Document 12/05/23 08:40 CAB (Rec: 12/05/23 09:18 CAB [id number]) Pre-Anesthesia Assessment Patient Information Reviewed Via Phone Assessment Assessment Completed With Patient Diagnostic Results BMP/CMP,CBC Comment Labs done per pt, not here/ available at time of assess Primary Care Provider Ginna Haynes Seen Specialist in Last 12 Months Yes Specialist Seen Orthopedist Primary Language Maldivian Preferred Language Maldivian Computer Hardware Developer Required No Height 162.56 cm Weight 72.575 kg Body Mass Index (BMI) 27.4 Hearing Ability Normal Visual Assist Glasses Dentition Type Teeth, Natural Present Barriers to Learning None Hx Anesthesia Reactions Yes: Severe PONV Hx Family Anesthesia Reaction No Hx Malignant Hyperthermia No Hx Blood Transfusions No Hx Blood Transfusion Reaction No Anesthesia Review Requested No Global Creative Chairman No alcohol intake former alcohol intake frequency holidays/special occasions only Smoking Status Former smoker Tobacco type cigarettes,e-cigarettes how long ago did patient quit smoking Quit cigarettes 1997, vapes CBD Substance Use Type does not use Pain Present Pain Reported Musculoskeletal Symptoms Abnormal Gait,Back Pain, Difficulty Walking History of Falling (Recent or History of Yes ) Comment Drop foot left Patient is completely paralyzed or No completely immobile Mental Status Oriented to own ability Comment Walking boot for drop foot Is patient on oxygen? No Does patient have BETHEA/SOB No Hx Sleep Apnea No Currently Taking a Beta Elsa Yes: Metoprolol Can You Climb a Flight of Stairs Without No SOB Hx Chest Pain No Hx SOB No Hx Syncope or Dizziness No Anti-Coagulant Therapy No Has a First Officer And Flight Instructor No Cardiac Testing No Hx Pacemaker/ICD No Pacemaker Rep Required? No Cardiac Clearance Received Not Applicable Diet Type At Home Regular Dysphagia No Gastrointestinal Symptoms None Bladder Pattern Incontinent, Stress,Urgency Urinary Catheter Present No Hx Urinary Self Catheterization No Diabetes No Patient No Lactating No Presence of External or Internal Medical Yes: Cervical hardware, shoe Devices insert for neuropathy, lumbar fusion Received a COVID vaccine? No Marital Status Lives With spouse Current Living Arrangements House Number of Floors (Floors) One Floor Support System Child/Children,Spouse Does the Patient Have Assistance After Yes Surgery Patient Discharge Plan Description Return Home Comment Pt not advised on length of stay per surgeon Feels Safe in Current Environment Yes Been Physically Hurt or Threatened By a No Person in Current Environment Do you have thoughts of harming yourself None or others? Are you currently considering suicide? No Do you have a plan to hurt yourself or No Plan others? Do You Have Any Spiritual Beliefs That No May Affect Your HC Choices? Do You Have Any Cultural Practices That No May Affect Your HC Choices? Comment Restorationism Who Can We Speak to About Patient's Care Family, friends Identifying Code for Release of Patient Declines to issue Information Health Care Proxy/Next of Kin Kenneth () Health Care Proxy Emergency Contact Name Kenneth () Emergency Contact Advance Directives? No Power of Treater Helper Yes Power of Treater Helper Name Kenneth () Power of Treater Helper PAC Instructions Durable medical equipment, Medications to take/avoid, Nasal antibiotic,No ETOH/ petroleum product on skin DOS, NPO,Post-op transportation,Pre -surgical wash,Sensory aids, Sturdy shoes/comfortable clothes,Do not bring valuables and remove jewelry
[2023-12-14] MEDS: methocarbamoL 500 MG TABLET 750 MG PO (09:40)
--- NOTE | 2023-12-14 10:39 | OT.IP.TRT ---
Current Diagnoses Spinal stenosis, lumbar region without neurogenic claudication (12/12/23) Intervertebral disc disorders with radiculopathy, lumbar region (12/12/23) Arthrodesis status (12/12/23) Surgery Performed Operation Date: 12/12/23 11:45 Actual Procedures p L4-5, L5-S1 TLIF with posterior instrumentation, L2-S1 PSF-Robot(Bilateral) - Amarilis Pike MD Occupational Therapy Treatment Note M2 OT-IP Current Condition Start: 12/13/23 12:51 Freq: Status: Active Protocol: Document 12/13/23 12:52 [facility] (Rec: 12/13/23 13:17 [facility] [id number]) Occupational Therapy Current Condition Current Condition Evaluation Date 12/13/23 Treatment Diagnosis S/P L4-5,L5-S1 TLIF with posterior inst, L2-S1 PSF Robot Diagnosis Onset Date 12/12/23 Post Operative Precautions Lumbar Precautions Log Roll,No Twisting,Limit Bending,Lifting Restriction of 10 lbs,Gait Belt above Incisional Area Weight Bearing Status Weight Bearing Status Weight Bear as Tolerated M3 OT- IP Subjective and Pain Start: 12/13/23 12:51 Freq: Status: Active Protocol: Document 12/14/23 08:20 [facility] (Rec: 12/14/23 10:39 [facility] [id number]) OT- Subjective Occupational Therapy Visit Type Type Treatment Note Visit Start Time 08:20 Visit Stop Time 08:54 Notes Pt was reclined in chair on entrance of OT with spouse present. Pt reported she had nausea and vomiting this morning but was feeling better after receiving her pain medication. Pt agreed to participate in OT treatment and was eager to perform ADLs as she is expecting to d/c this morning. Occupational Therapy Visit Comments Patient Comments Pt states all lumbar precautions. She and her spouse verbalize understanding of precautions, AE for BADLs, and modifications to BADLs as appropriate per her precautions. OT Pain Assessment Pain When Pain Assessed At Rest Pain Present Pain Present Pain Reported Location Bilateral Back Intensity 5 Scale Used Numeric (0 - 10) Management Techniques Timing of Activity with Medications M4 OT- IP ADL's Start: 12/13/23 12:51 Freq: Status: Active Protocol: Document 12/14/23 08:20 [facility] (Rec: 12/14/23 10:39 T[facility] [id number]) OT ADL-Grooming General Evaluation Grooming Ability Standby Assistance Areas Needing Assistance Retrieving/Set-up of Grooming Items Comments OT Grooming Comments Pt brushes her hair and pulls it up into a bun while standing sink side on setup of brush. OT ADL-Oral Care General Eval Oral Care Ability Independent Comments Oral Care Comments Pt performs oral hygiene sink side with mod I, using basin to spit in order to avoid breaking her bending precaution. OT educates pt that minor hip hinge is allowed, but pt prefers to perform with basin for extra caution. OT ADL-Dressing General Eval Upper Body Dressing Ability Standby Assistance Lower Body Dressing Ability Standby Assistance,Minimal Assistance Areas Needing Assistance Retrieving/Set-up of Clothing Assistive Devices Dressing Assistive Devices Wastewater Technician,Sock Aid Comments OT Dressing Comments Pts spouse gathers clothing items. Pt doffed hospital gown and donned tank top and t- shirt while sitting upright in chair. OT educated pt on use of AE for maintaining lumbar precautions during LB dressing . Pt used long handled abstract clerk for donning underpants and elastic waisted pants following the education with min vcs prn. Pt performs sit> stand with S and pulls up clothing with min A to retrieve elastic pants from her ankles to where she could reach them without bending. Pt used sock aid to don B socks with vcs prn. OT ADL-Bathing Bathing Type Bathing Type Sponge Bath General Evaluation Bathing Ability Moderate Assistance Areas Needing Assistance Retrieving/Setting Up Items, Wash/Dry Back,Wash/Dry Perineal Area,Wash/Dry Lower Extremities Comments OT Bathing Comments Pt requested a sponge bath. Pt 's spouse educated on how to assist pt in maintaining lumbar precautions during bathing. M5 OT- IP IADL's Start: 12/13/23 12:51 Freq: Status: Active Protocol: Document 12/13/23 12:52 [facility] (Rec: 12/13/23 13:17 [facility] [id number]) OT-Instrumental Activities of Daily Living Deficits IADL Deficits Identified Deficits Home Safety Awareness Awareness of Need for Assistance at Home Good Awareness Ability to Problem Solve Emergency Able to Problem Solve Situations Home Safety Comments Pt is very anxious and per pt' s has a very low pain tolerance and he plans to assist her for all needs at home. Medication Management Medication Management Comments Pt will benefit from assist. Money Management Money Management Comments Pt will benefit from assist. Meal Preparation Meal Preparation Comments Pt's to assist. Superintendent Job Superintendent Job Comments Pt's to assist. M6 OT- IP Functional Cognition Start: 12/13/23 12:51 Freq: Status: Active Protocol: Document 12/13/23 12:52 [facility] (Rec: 12/13/23 13:17 [facility] [id number]) Cognitive Factors Limiting Selfcare Function Cognitive Ability Level of Alertness Alert Patient Orientation Name,Place,Situation Attention Span Ability Capable of Focused Attention, Unable to Sustain Attention Ability to Follow Commands Able to Follow One Step Commands with Increased Time, Able to Follow One Step Commands with Repetition Cognitive Comments Cognitive Assessment Comments Pt not able to recall her back precautions and needing vc to recall and incorporate for ADL and mobility needs. Pt needing lots of encouragement and step by step instructions as pt very anxious and hurting . OT- Vision and Hearing OT- Vision Assessment Visual Acuity Glasses All The Time Visual Attentiveness WFL Occular Pursuits WFL M7 OT- IP Mobility and Balance Start: 12/13/23 12:51 Freq: Status: Active Protocol: Document 12/14/23 08:20 [facility] (Rec: 12/14/23 10:39 LISE[facility]ALAN[facility] [id number]) OT-Transfer Assessment Sit to and From Stand Sit to and from Stand Standby Assistance Transfers Transfer Ability Standby Assistance Technique Transfer Destination Chair Devices Transfer Assistive Devices Gait Belt,Front Wheeled Walker Comments Mobility Comments Pt performs sit<>stand with vcs for hand placement. OT- Gait Assessment Gait Gait Assistance Required: Standby Assistance Distance (Feet) 20 Assistive Devices Assistive Device Gait Belt,Front Wheeled Walker Comments Gait Ability Comments Pt ambulates from chair to sink for sink side ADLs and back. Pt requires vcs, especially when turning, to avoid trunk twisting. OT- Balance Assessment Sitting Balance and Reactions Static Sitting Balance Ability Normal Dynamic Sitting Balance Ability Good Standing Balance and Reactions Static Standing Balance Ability Good Dynamic Standing Balance Ability Good M8 OT- IP Objective Assessments Start: 12/13/23 12:51 Freq: Status: Active Protocol: Document 12/13/23 12:52 [facility] (Rec: 12/13/23 13:17 [facility] [id number]) OT Gross Range of Motion Upper Extremity Range of Motion Assessment Within Functional Limits OT Strength Comments Strength Comments NT due but WFL for mobility needs today. M9 OT- IP Assessment and Plan Start: 12/13/23 12:51 Freq: Status: Active Protocol: Document 12/14/23 08:20 [facility] (Rec: 12/14/23 10:39 [facility] [id number]) OT Summary Assessment and Plan Potential Rehabilitation Potential Excellent Summary OT Impairments Pain,Strength,Balance, Functional Mobility,Dressing, Toileting,Bathing,Toilet Transfers,Shower Transfers Progress Towards Goals Progressing Toward Goals,Slow Progress due to Pain Assessment Summary Pt was pleasant and cooperative throughout treatment. Pt and spouse both verbalized being eager to d/c home. Pt says her spouse retired so he could help her at home. Pt reports pain at start and end of tx, but makes no complaints about pain throughout treatment session. Pt requires vcs prn for maintaining lumbar precautions during BADLs and functional mobility. Pt left up in chair with all needs met and in reach including call light. [facility] staff notified of pt's position following tx. Goals Grooming Goal Standby Assistance Dressing Goal Minimal Assistance Bathing Goal Moderate Assistance Frequency of Treatment Frequency Of Treatment Once a Day Treatment Plan OT Treatment Plan ADL Training,Functional Mobility,Patient/Family Education,Discharge Planning Other Treatment Recommendations and Next caregiver training Treatment Focus Discharge Recommendations OT Discharge Recommendations Home with 19/03 Assist Available Home Equipment Needs shower chair, abstract clerk, sock aid Transportation Needs at Discharge Private Vehicle
--- NOTE | 2023-12-14 10:44 | PC.NURSE ---
Patient is A&OX4, VSS, afebrile on RA. She has been up to BR multiple times with or staff SBA. PA at bedside this a.m. medically clearing patient for d/c/ home today pending PT.She reports pain is well controlled at 5/10 after two tabs of hydrocodone this a.m. However just before when pain had spiked she had a bout of emesis, she states I get nauseated from the pain She tolerates breakfast well and is cleared by PT for discharge home. She verbalizes understanding of medications, s/sx of infection/complications, site care, activity limitations and follow up appointment. She is escorted via w/ch by RN to private vehicle with with all of her belongings including FWW at 10:00 a.m. for discharge home.
== END 2023-12-14 10:05 | disposition home or self-care (01) | DRG 454 ==
PROVIDERS: Admitting Provider Orthopaedic Surgery Orthopaedic Surgery of the Spine; PCP Physician Assistant; Referring Provider Orthopaedic Surgery Orthopaedic Surgery of the Spine; Visit Provider Orthopaedic Surgery Orthopaedic Surgery of the Spine
PROC: 0SG00AJ Fusion of Lumbar Vertebral Joint with Interbody Fusion Device, Posterior Approach, Anterior Column, Open Approach (ICD-10-PCS; principal; 2023-12-12 11:45)
DX: M48.061 Spinal stenosis, lumbar region without neurogenic claudication (principal); M96.0 Pseudarthrosis after fusion or arthrodesis; T84.038A Mechanical loosening of other internal prosthetic joint, initial encounter; M51.16 Intervertebral disc disorders with radiculopathy, lumbar region; M96.1 Postlaminectomy syndrome, not elsewhere classified; F32.A Depression, unspecified; K21.9 Gastro-esophageal reflux disease without esophagitis; I10 Essential (primary) hypertension; Z98.1 Arthrodesis status; Z87.891 Personal history of nicotine dependence
CPT/HCPCS: 36415; 72100; 76000; 85014; 85018; 97116; 97161; 97165; 97530; 97535; C1776; C1713; C9290; J0690; J1170; J2060; J2250; J2405; J2704; J3010; J3410